=== PATIENT | female | born 1955 | race Caucasian/White ===

== ENCOUNTER 2020-05-11 14:06 | Outpatient (REF) | payer MEDICARE, OTHER, SELFPAY ==
--- NOTE | 2020-05-11 | MM_ITS ---
EXAMINATION: MM SCREENING DIGITAL BREAST TOMOSYNTHESIS, BILATERAL CLINICAL INFORMATION: Screening. Asymptomatic. The lifetime risk of breast cancer based on the Tyrer-Cuzick Model is 7.3%. COMPARISON: Mammography: August 23, 2018 and studies dating back to December 22, 2011 TECHNIQUE: Digital breast tomosynthesis is performed in both the craniocaudal and mediolateral oblique views along with computer-aided detection (CAD). Synthesized 2D images are generated from the tomosynthesis. FINDINGS: The breasts are heterogeneously dense, which may obscure small masses (ACR BI-RADS breast composition Category c). There are no significant masses, abnormal calcifications, or other abnormalities. MM/MM tomosynthesis screening BI IMPRESSION: There are no significant changes from prior study. ASSESSMENT: BI-RADS 1: Negative RECOMMENDATION: Routine annual mammography screening. This patient's information was entered into a reminder system with a target due date for their next mammogram.
--- NOTE | 2020-05-11 14:11 | MM_ITS ---
EXAMINATION: MM SCREENING DIGITAL BREAST TOMOSYNTHESIS, BILATERAL CLINICAL INFORMATION: Screening. Asymptomatic. The lifetime risk of breast cancer based on the Tyrer-Cuzick Model is 7.3%. COMPARISON: Mammography: August 23, 2018 and studies dating back to December 22, 2011 TECHNIQUE: Digital breast tomosynthesis is performed in both the craniocaudal and mediolateral oblique views along with computer-aided detection (CAD). Synthesized 2D images are generated from the tomosynthesis. FINDINGS: The breasts are heterogeneously dense, which may obscure small masses (ACR BI-RADS breast composition Category c). There are no significant masses, abnormal calcifications, or other abnormalities. MM/MM tomosynthesis screening BI IMPRESSION: There are no significant changes from prior study. ASSESSMENT: BI-RADS 1: Negative RECOMMENDATION: Routine annual mammography screening. This patient's information was entered into a reminder system with a target due date for their next mammogram.
== END 2020-05-11 14:07 | disposition home or self-care (01) ==
LOC: HO.MAMMO 14:06
PROVIDERS: PCP Internal Medicine; Visit Provider Internal Medicine
DX: Z12.31 Encounter for screening mammogram for malignant neoplasm of breast (principal)
CPT/HCPCS: 77063; 77067

== ENCOUNTER 2021-03-09 06:44 | Outpatient (REF) | payer MEDICARE, OTHER, SELFPAY ==
--- NOTE | ~2021-03-09 | XR_ITS ---
EXAMINATION: XR CHEST CLINICAL INFORMATION: COPD COMPARISON: None TECHNIQUE: 2 views of the chest were obtained. FINDINGS: The cardiac and mediastinal contours are stable. The lungs are well-inflated. There is a 1 cm asymmetric density that projects adjacent to the right first rib costochondral cartilage. It is uncertain whether this represents superimposition of bony and vascular structures or could represent a nodule. The lungs are otherwise clear. There is no pleural effusion or pneumothorax area there are degenerative changes of the spine. XR/XR chest 2V IMPRESSION: Well-inflated lungs. 1 cm asymmetric density projecting over the right upper lobe. Follow-up apical lordotic view of the chest or chest CT scan recommended.
[2021-03-09 06:51] LABS: MANUAL DIFF FLAG NO
[2021-03-09 07:18] LABS: Basophils Percent Auto 0.5 % (0-2); Eosinophils Absolute Auto 0.2 X10*3/uL (0.0-0.4); Eosinophils Percent Auto 3.5 % (0-4); Hematocrit 41.3 % (37.0-47.0); Hemoglobin 13.8 g/dl (12.0-16.0); Imm Gran Abs Auto 0.01 X10*3/uL (0.00-0.03); Imm Gran Pct Auto 0.2 % (0.0-0.4); Lymphocytes Absolute Auto 2.3 X10*3/uL (1.2-4.9); Lymphocytes Percent Auto 40.5 % (20-40); Mean Corpuscular HGB Conc 33.4 g/dl (31.0-35.0); Mean Corpuscular Hemoglobin 30.3 pg (27.0-33.0); Mean Corpuscular Volume 90.8 fL (80.0-98.0); Mean Platelet Volume 11.1 fL (9.4-12.3); Monocytes Absolute Auto 0.5 X10*3/uL (0.1-1.2); Monocytes Percent Auto 8.6 % (2-11); Neutrophils Absolute Auto 2.7 x10*3/uL (2.0-8.3); Neutrophils Percent Auto 46.7 % (45-73); Platelet Count 178 X10*3/uL (160-400); Red Blood Count 4.55 X10*6/uL (4.20-5.50); Red Cell Distribution Width 12.1 % (11.0-16.0); White Blood Count 5.7 X10*3/uL (4.8-10.8)
[2021-03-09 07:44] LABS: Alanine Aminotransferase 14 U/L (0-31); Albumin Level 3.7 g/dL (3.5-5.0); Alkaline Phosphatase 79 U/L (39-117); Anion Gap 10 (12-20); Aspartate Amino Transferase 20 U/L (5-31); Bilirubin Total 0.5 mg/dL (0.0-1.0); Blood Urea Nitrogen 8 mg/dL (9-16); Carbon Dioxide 27 mmol/L (22-29); Chloride 106 mmol/L (96-108); Cholesterol 162 mg/dL; Estimated Glomerular Filt Rate > 60; Glucose Fasting 98 mg/dL (60-99); HDL Cholesterol 46 mg/dL; LDL Cholesterol Calculated 95 mg/dl; Potassium 4.1 mmol/L (3.3-5.1); Sodium 139 mmol/L (135-145); Total Protein 6.9 g/dL (6.5-8.0); Triglycerides 106 mg/dL
== END 2021-03-09 06:45 | disposition home or self-care (01) ==
LOC: HO.XRAY 06:44
PROVIDERS: PCP Internal Medicine; Visit Provider Internal Medicine
DX: M06.9 Rheumatoid arthritis, unspecified (principal); J44.9 Chronic obstructive pulmonary disease, unspecified; M17.10 Unilateral primary osteoarthritis, unspecified knee; R63.4 Abnormal weight loss; F17.200 Nicotine dependence, unspecified, uncomplicated; Z82.49 Family history of ischemic heart disease and other diseases of the circulatory system
CPT/HCPCS: 36415; 71046; 80053; 80061; 85025

== ENCOUNTER 2021-04-04 12:58 | Outpatient (REF) | payer MEDICARE, OTHER, SELFPAY ==
--- NOTE | ~2021-04-04 | CT_ITS ---
EXAMINATION: CT CHEST WITHOUT CONTRAST CLINICAL INFORMATION: Question right upper lobe lesion on chest x-ray COMPARISON: Previous chest x-ray February 2021 TECHNIQUE: Multidetector volumetric CT imaging of the chest was done. Axial MIP volume rendering provided. Sagittal and coronal reformatted images were obtained. This CT examination was performed using dose optimization techniques as appropriate, variously including the following: *Automated exposure control *Adjustment of mA and/or kV according to patient size (this includes techniques or standardized protocols for targeted exams where dose is matched to indication/reason for exam; i.e. extremities or head) *Use of iterative reconstruction technique DLP: 81 mGy-cm FINDINGS: LUNGS: There is evidence of mild emphysema. There is a 5 mm right upper lobe nodule axial image 72 series 7. There is a 2 mm left upper lobe nodule axial image 137 series 7. There is a 1 to 2 mm right upper lobe nodule posterior segment axial image 185 series 7. There is a 2 mm medial anterior segment right upper lobe nodule axial image 183 series 7. There is a 1.5 cm cyst in the right lower lobe. Density seen on chest x-ray is likely related to first rib costochondral cartilage. MEDIASTINUM: There is mild coronary artery calcification. There are small mediastinal lymph nodes. No enlarged lymph nodes are seen. The mediastinum is otherwise normal. PLEURA: There is no pleural effusion. No pleural mass or thickening. AXILLA: No lymphadenopathy. UPPER ABDOMEN: Unremarkable. OSSEOUS STRUCTURES: There are degenerative changes of the spine and mild curvature of the proximal thoracic spine to the right. CT/CT chest wo con IMPRESSION: Mild emphysema. Small pulmonary nodules. Largest pulmonary nodule measures 5 mm in the right upper lobe. According to the UPDATED 2017 Fleischner Society recommendations, the advised follow-up imaging for less than 6 mm nodule: Low risk, no chest CT follow-up and high risk, optional chest CT follow-up in one year. Fleischner guidelines were followed.
== END 2021-04-04 12:59 | disposition home or self-care (01) ==
LOC: HO.CT 12:58
PROVIDERS: PCP Internal Medicine; Visit Provider Internal Medicine
DX: R91.8 Other nonspecific abnormal finding of lung field (principal)
CPT/HCPCS: 71250

== ENCOUNTER 2021-08-03 12:54 | Outpatient (REF) | payer MEDICARE, OTHER, SELFPAY ==
--- NOTE | ~2021-08-03 | MM_ITS ---
EXAMINATION: MM SCREENING DIGITAL BREAST TOMOSYNTHESIS, BILATERAL CLINICAL INFORMATION: Screening. Asymptomatic. The lifetime risk of breast cancer based on the Tyrer-Cuzick Model is 4%. COMPARISON: Mammography: 05/11/2020, 08/23/2018, 07/30/2017 TECHNIQUE: Digital breast tomosynthesis is performed in both the craniocaudal and mediolateral oblique views along with computer-aided detection (CAD). Synthesized 2D images are generated from the tomosynthesis. FINDINGS: There are scattered areas of fibroglandular density (ACR BI-RADS breast composition Category b). There is inhomogeneous parenchymal pattern with scattered stable asymmetries similar to prior studies. Again, there is dominant oval mass right upper outer quadrant and 2 smaller stable masses (breast upper outer quadrant and central lower left breast. Biopsy clip marker again noted on right anterior 11:30 o'clock position. There are scattered bilateral punctate calcifications again seen more numerous on the right. There is no developing density or interval mass or interval architectural abnormality. The axilla and skin contours are unremarkable. There are no significant changes. MM/MM tomosynthesis screening BI IMPRESSION: No significant changes from prior exams. ASSESSMENT: BI-RADS 2: Benign RECOMMENDATION: Routine annual mammography screening. This patient's information was entered into a reminder system with a target due date for their next mammogram.
== END 2021-08-03 12:55 | disposition home or self-care (01) ==
LOC: HO.MAMMO 12:54
PROVIDERS: PCP Internal Medicine; Visit Provider Internal Medicine
DX: Z12.31 Encounter for screening mammogram for malignant neoplasm of breast (principal)
CPT/HCPCS: 77063; 77067

== ENCOUNTER 2022-08-24 13:59 | Outpatient (REF) | payer MEDICARE, OTHER, SELFPAY ==
--- NOTE | ~2022-08-24 | XR_ITS ---
EXAMINATION: XR LUMBOSACRAL SPINE CLINICAL INFORMATION: Low back pain COMPARISON: None available. TECHNIQUE: Three views of the lumbosacral spine. FINDINGS: There is normal lumbar lordosis. The vertebral heights and alignment is normal. There is loss of L4-L5 and L5-S1 disc heights. Rest the disc heights are normal. No visible acute fracture, dislocation or lytic process seen. The SI joints are symmetrical. The soft tissues are normal. XR/XR lumbar spine 2-3V IMPRESSION: Degenerative disc changes L4-L5 and L5-S1 disc levels. No visible acute fracture, dislocation or lytic process seen.
== END 2022-08-24 14:00 | disposition home or self-care (01) ==
LOC: HO.XRAY 13:59
PROVIDERS: PCP Internal Medicine; Visit Provider Internal Medicine
DX: M54.9 Dorsalgia, unspecified (principal); M79.605 Pain in left leg; M79.604 Pain in right leg; J44.9 Chronic obstructive pulmonary disease, unspecified
CPT/HCPCS: 72100

== ENCOUNTER 2022-08-31 15:48 | Outpatient (REF) | payer MEDICARE, OTHER, SELFPAY ==
--- NOTE | ~2022-08-31 | MM_ITS ---
EXAMINATION: MM SCREENING DIGITAL BREAST TOMOSYNTHESIS, BILATERAL CLINICAL INFORMATION: Screening. Asymptomatic. The lifetime risk of breast cancer based on the Tyrer-Cuzick Model is 7%. COMPARISON: Mammography: 08/03/2021, 05/11/2020, 08/23/2018 TECHNIQUE: Digital breast tomosynthesis is performed in both the craniocaudal and mediolateral oblique views along with computer-aided detection (CAD). Synthesized 2D images are generated from the tomosynthesis. FINDINGS: There are scattered areas of fibroglandular density (ACR BI-RADS breast composition Category b). Parenchymal pattern is similar to prior studies and there is no developing density or architectural abnormality or significant changes. There are no significant masses, abnormal calcifications, or other abnormalities. Again, there is smooth oval focal nodular asymmetry mid upper outer right breast. Biopsy clip marker again seen 12:00 right breast. The axilla are unremarkable. MM/MM tomosynthesis screening BI IMPRESSION: No mammographic evidence of malignancy. ASSESSMENT: BI-RADS 2: Benign RECOMMENDATION: Routine annual mammography screening. This patient's information was entered into a reminder system with a target due date for their next mammogram.
== END 2022-08-31 15:49 | disposition home or self-care (01) ==
LOC: HO.MAMMO 15:48
PROVIDERS: PCP Internal Medicine; Visit Provider Internal Medicine
DX: Z12.31 Encounter for screening mammogram for malignant neoplasm of breast (principal)
CPT/HCPCS: 77063; 77067

== ENCOUNTER 2022-09-11 13:22 | Outpatient (REF) | payer MEDICARE, OTHER, SELFPAY ==
--- NOTE | ~2022-09-11 | US_ITS ---
EXAMINATION: ARTERIAL DUPLEX BILATERAL LEGS CLINICAL INFORMATION: Bilateral leg pain. COMPARISON: None TECHNIQUE: Duplex Doppler of the bilateral lower extremity arterial systems was performed. FINDINGS: RIGHT: Common femoral: PSV 206 cm/s. Triphasic waveform. Deep femoral: PSV 120 cm/s. Triphasic waveform. Proximal superficial femoral: PSV 142 cm/s. Triphasic waveform. Mid superficial femoral: PSV 169 cm/s. Biphasic waveform. Distal superficial femoral: PSV 118 cm/s. Biphasic waveform. Popliteal: PSV 62 cm/s. Biphasic waveform. Posterior tibial: PSV 73 cm/s. Biphasic waveform. Peroneal: PSV 81 cm/s. Biphasic waveform. LEFT: Common femoral: PSV 152 cm/s. Triphasic waveform. Deep femoral: PSV 92 cm/s. Triphasic waveform. Proximal superficial femoral: PSV 132 cm/s. Biphasic waveform. Mid superficial femoral: PSV 127 cm/s. Triphasic waveform. Distal superficial femoral: PSV 108 cm/s. Biphasic waveform. Popliteal: PSV 78 cm/s. Biphasic waveform. Posterior tibial: PSV 84 cm/s. Biphasic waveform. Peroneal: PSV 85 cm/s. Biphasic waveform. An irregular cardiac rhythm is noted. US/US arterial duplex LE BI IMPRESSION: No evidence of hemodynamically significant peripheral arterial disease. An irregular cardiac rhythm is noted.
== END 2022-09-11 13:23 | disposition home or self-care (01) ==
LOC: HO.US 13:22
PROVIDERS: PCP Internal Medicine; Visit Provider Internal Medicine
DX: M79.604 Pain in right leg (principal); M79.605 Pain in left leg
CPT/HCPCS: 93925

== ENCOUNTER 2022-09-27 08:05 | Outpatient (REF) | payer MEDICARE, OTHER, SELFPAY ==
--- NOTE | ~2022-09-27 | MR_ITS ---
EXAMINATION: MR LUMBAR SPINE WITHOUT CONTRAST CLINICAL INFORMATION: 67-year-old with self-reported chronic low back pain and buttock pain. History of rheumatoid arthritis. Some numbness and tingling in the right leg and foot. Clinical concern for L4 compression fracture, with low back pain. COMPARISON: 08/24/2022 x-rays. TECHNIQUE: MRI of the lumbar spine was obtained using routine sequences without contrast. FINDINGS: Coronal Alignment: Slight S-shaped thoracolumbar scoliotic curvature, minimally convex to the left at L4-L5. Sagittal Alignment: 2 mm of retrolisthesis at L1-L2 and trace degrees of retrolisthesis at L2-L3 and L3-L4 similar to the x-rays. No anterior spondylolisthesis or spondylolysis. Lordotic curvature centered at L3-L4. Lumbosacral Junction: Normal. There are 5 trp-hng-baeckwl lumbar-type vertebral bodies. Vertebral Bodies: There is mild to moderate relatively central concavity with loss of height along the superior endplate of L3, which is more prominent than on the previous x-rays consistent with an interval compression fracture deformity without significant retropulsion. Remaining lumbar and visualized lower thoracic vertebral body heights are well-maintained. Disc Spaces and Endplates: Moderate to severe disc space height loss asymmetric to the right at L4-L5 with disc desiccation, Schmorl's nodes and minor spondylosis. Moderate to severe disc space height loss at L5-S1 with disc desiccation and anterolateral spondylosis. Mild disc desiccation at L3-L4 without significant disc space height loss. There is disc desiccation at L2-L3 with concavity along the superior endplate of L3 consistent with a compression fracture. There is mild disc space height loss with disc desiccation at L1-L2 with moderate anterior marginal spondylosis. Spinal Canal: No abnormal developmental findings. Bone Marrow: There is bandlike bone marrow edema extending across the superior aspect of the L3 vertebral body adjacent to the superior endplate with T1 signal loss associated with this consistent with a nonhealed superior endplate fracture without significant anterior wedging. No retropulsion seen. There are type I and type II degenerative marrow signal changes along the endplates asymmetric to the right at L4-L5 with type II marrow signal changes at L5-S1. Note is made of a cortical step-off along the anterior cortex of the upper S2 vertebral segment associated with marrow edema in the S1 and S2 vertebral segments in the midline in addition to T1 signal loss and marrow edema in the sacral alae bilaterally, which are partially imaged. These findings are consistent with a sacral insufficiency fracture. Suggest correlation with plain x-rays of the pelvis. Conus Medullaris: Terminates at T12-L1. Morphology and signal is normal. Intradural Nerve Roots: Within normal limits. L5-S1: Mild posterolateral disc osteophyte complex asymmetric to the left, with slight encroachment on the ventral dural sac on the left without definite neural impingement. There is mild facet arthrosis bilaterally with no significant canal stenosis. Mild left-sided neural foraminal stenosis is noted. Left paravertebral disc osteophyte complex may be contacting the extraforaminal left L5 nerve root. L4-L5: There is diffuse disc bulging with right paravertebral/posterolateral disc osteophyte complex, with mild flattening of the ventral dural sac. Mild ligamentum flavum thickening is noted with mild to moderate right and mild left-sided facet arthropathy without significant spinal canal stenosis. There is moderate right-sided neural foraminal stenosis with disc osteophyte complex abutting the exiting right L4 nerve root. L3-L4: Minor annular bulging noted with slight flattening of the ventral dural sac. Ligamentum flavum thickening is noted with interspinous ligament degeneration and [id number] bilateral facet arthrosis. No significant spinal canal stenosis. Minor foraminal narrowing is noted on the left without neural impingement. L2-L3: Minor disc bulging noted with slight flattening of the ventral dural sac. Mild ligamentum flavum thickening and interspinous ligament degeneration is noted with minor facet arthropathy bilaterally with no significant canal stenosis. There is minor foraminal narrowing bilaterally without neural impingement. L1-L2: Retrolisthesis and minor disc bulging with slight flattening of the ventral dural sac is noted with no significant facet arthrosis or canal stenosis. There is minor foraminal narrowing bilaterally without neural impingement. Paravertebral and Included Extraspinal Soft Tissues: The visualized paravertebral soft tissues and included retroperitoneal structures are unremarkable within the limitations of the exam. MR/MR lumbar spine wo con IMPRESSION: 1. Qtvd-[id number], nonhealed interval compression fracture deformity along the superior endplate of L3 as described above, with approximately 30% loss of height centrally with no significant retropulsion or anterior wedging, with associated marrow edema. 2. Bilateral sacral insufficiency fractures, partially imaged, with a cortical step off at S2. If clinically warranted, recommend correlation with pelvic x-rays. 3. Multilevel discogenic degenerative changes and spondylosis as described above, with multilevel disc bulging and disc osteophyte complexes with multilevel bilateral facet arthropathy and interspinous ligament degeneration. No significant spinal canal stenosis. 4. Moderate right-sided neural foraminal stenosis at L4-L5 with disc osteophyte complex abutting the exiting right L4 nerve root. Other levels of mild neural foraminal narrowing are noted without neural impingement. The [facility] staff will call to confirm receipt of this report with acknowledgement of the findings and any recommendations.
== END 2022-09-27 08:06 | disposition home or self-care (01) ==
LOC: HO.MRI 08:05
PROVIDERS: PCP Internal Medicine; Visit Provider Internal Medicine
DX: M54.50 Low back pain, unspecified (principal)
CPT/HCPCS: 72148

== ENCOUNTER 2022-11-02 13:50 | Outpatient (REF) | payer MEDICARE, OTHER, SELFPAY ==
[2022-11-09 02:03] LABS: JCV Antibody POSITIVE; JCV Index Value 3.37
== END 2022-11-02 13:51 | disposition home or self-care (01) ==
LOC: HO.LAB 13:50
PROVIDERS: PCP Internal Medicine; Visit Provider Ophthalmology
DX: H15.03 Posterior scleritis (principal); Z79.899 Other long term (current) drug therapy
CPT/HCPCS: 36415; 86711; 87798

== ENCOUNTER 2022-12-01 13:31 | Outpatient (REF) | payer MEDICARE, OTHER, SELFPAY ==
[2022-12-09 02:24] LABS: JCV Antibody POSITIVE; JCV Index Value 3.55
== END 2022-12-01 13:32 | disposition home or self-care (01) ==
LOC: HO.LAB 13:31
PROVIDERS: PCP Internal Medicine; Visit Provider Ophthalmology
DX: H15.03 Posterior scleritis (principal); Z79.899 Other long term (current) drug therapy
CPT/HCPCS: 36415; 86711; 87798

== ENCOUNTER 2023-08-25 08:37 | Outpatient (REF) | payer MEDICARE, OTHER, SELFPAY ==
[2023-08-25 08:55] LABS: MANUAL DIFF FLAG NO
[2023-08-25 09:26] LABS: Basophils Absolute Auto 0.1 X10*3/uL (0.0-0.2); Basophils Percent Auto 1.1 % (0-2); Eosinophils Absolute Auto 0.3 X10*3/uL (0.0-0.4); Hematocrit 43.2 % (37.0-47.0); Hemoglobin 14.8 g/dl (12.0-16.0); Imm Gran Abs Auto 0.02 X10*3/uL (0.00-0.03); Imm Gran Pct Auto 0.4 % (0.0-0.4); Lymphocytes Absolute Auto 1.7 X10*3/uL (1.2-4.9); Lymphocytes Percent Auto 30.9 % (20-40); Mean Corpuscular HGB Conc 34.3 g/dl (31.0-35.0); Mean Corpuscular Hemoglobin 31.3 pg (27.0-33.0); Mean Corpuscular Volume 91.3 fL (80.0-98.0); Monocytes Absolute Auto 0.5 X10*3/uL (0.1-1.2); Monocytes Percent Auto 8.5 % (2-11); Neutrophils Absolute Auto 3.1 x10*3/uL (2.0-8.3); Neutrophils Percent Auto 54.1 % (45-73); Platelet Count 161 X10*3/uL (160-400); Red Blood Count 4.73 X10*6/uL (4.20-5.50); Red Cell Distribution Width 12.8 % (11.0-16.0); White Blood Count 5.6 X10*3/uL (4.8-10.8)
[2023-08-25 09:28] LABS: Appearance Urine Clear; Color Urine Yellow; Glucose Urine UA Negative (Negative); Leukocyte Esterase Urine Negative (Negative); Nitrite Urine Negative (Negative); PH 5.5 (5.0-9.0); Specific Gravity - Urine 1.015 (1.005-1.025); Urine Blood Negative (Negative); Urine Ketones Negative (Negative); Urine Protein Negative (Neg-Trace)
[2023-08-25 10:07] LABS: Alanine Aminotransferase 13 U/L (0-31); Albumin Level 3.9 g/dL (3.5-5.0); Alkaline Phosphatase 57 U/L (39-117); Anion Gap 11 (12-20); Aspartate Amino Transferase 19 U/L (5-31); Bilirubin Total 0.5 mg/dL (0.0-1.0); Blood Urea Nitrogen 11 mg/dL (9-16); Calcium 9.2 mg/dL (8.4-10.2); Carbon Dioxide 25 mmol/L (22-29); Chloride 110 mmol/L (96-108); Cholesterol 172 mg/dL (<200); Estimated Glomerular Filt Rate > 60; Glucose Fasting 92 mg/dL (60-99); HDL Cholesterol 65 mg/dL (>40); LDL Cholesterol Calculated 89 mg/dL (<100); Potassium 4.1 mmol/L (3.3-5.1); Sodium 142 mmol/L (135-145); Total Protein 6.5 g/dL (6.5-8.0); Triglycerides 94 mg/dL (<150)
[2023-08-25 10:25] LABS: Vitamin D 25-OH Total 10.7 ng/mL (>30)
== END 2023-08-25 08:38 | disposition home or self-care (01) ==
LOC: HO.LAB 08:37
PROVIDERS: PCP Internal Medicine; Visit Provider Internal Medicine
DX: M05.79 Rheumatoid arthritis with rheumatoid factor of multiple sites without organ or systems involvement (principal); J44.9 Chronic obstructive pulmonary disease, unspecified; J45.909 Unspecified asthma, uncomplicated
CPT/HCPCS: 36415; 80053; 80061; 81003; 82306; 85025

== ENCOUNTER 2023-09-03 13:23 | Outpatient (REF) | payer MEDICARE, OTHER, SELFPAY ==
--- NOTE | ~2023-09-03 | MM_ITS ---
EXAMINATION: MM SCREENING DIGITAL BREAST TOMOSYNTHESIS, BILATERAL CLINICAL INFORMATION: Screening. Asymptomatic. COMPARISON: Mammography: This study is compared with prior exams dating back to 2018. TECHNIQUE: Digital breast tomosynthesis is performed in both the craniocaudal and mediolateral oblique views along with computer-aided detection (CAD). Synthesized 2D images are generated from the tomosynthesis. FINDINGS: There are scattered areas of fibroglandular density (ACR BI-RADS breast composition Category b). There are no significant masses, abnormal calcifications, or other abnormalities. There is tissue marker present in the right breast from prior benign percutaneous biopsy. MM/MM tomosynthesis screening BI IMPRESSION: No mammographic evidence of malignancy. ASSESSMENT: BI-RADS BI-RADS 2 - Benign Findings RECOMMENDATION: Routine annual mammography screening. 1 year F/U This examination should not preclude the clinical evaluation of a suspicious palpable abnormality. This patient's information was entered into a reminder system with a target due date for their next mammogram.
== END 2023-09-03 13:24 | disposition home or self-care (01) ==
LOC: HO.MAMMO 13:23
PROVIDERS: PCP Internal Medicine; Visit Provider Internal Medicine
DX: Z12.31 Encounter for screening mammogram for malignant neoplasm of breast (principal)
CPT/HCPCS: 77063; 77067

== ENCOUNTER → 2023-09-03 13:45 | Outpatient (BNV) | payer MEDICARE, OTHER, SELFPAY | PROVIDERS: PCP Internal Medicine; Visit Provider Radiology Diagnostic Radiology | DX: Z12.31 Encounter for screening mammogram for malignant neoplasm of breast (principal) | CPT/HCPCS: 77063; 77067 ==

== ENCOUNTER 2023-10-06 09:03 | Outpatient (REF) | payer MEDICARE, OTHER, SELFPAY ==
[2023-10-06 10:59] LABS: Vitamin D 25-OH Total 33.5 ng/mL (>30)
== END 2023-10-06 09:04 | disposition home or self-care (01) ==
LOC: HO.LAB 09:03
PROVIDERS: PCP Internal Medicine; Visit Provider Internal Medicine
DX: E55.9 Vitamin D deficiency, unspecified (principal)
CPT/HCPCS: 36415; 82306

== ENCOUNTER 2024-09-08 12:43 | Outpatient (REF) | payer MEDICARE, OTHER, SELFPAY ==
--- OUTSIDE RECORDS SUMMARY | 2024-09-08 12:56 | XMS_ITS | Patient Health Record ---
Author Organization [facility] Address [address] [facility] [place] [address] Care Team Providers Care Candle Wicker Name Role Phone Marty Barrera MD Primary Care Provider Bakari Gutierrez Unavailable [phone] Allergies Allergen (clinical drug ingredient) Drug/Non Drug Allergy documented on EMR Reaction Allergy Type Onset Date Status leflunomide Leflunomide nausea and diarrhea Drug Allergy Active tocilizumab Actemra body rash Drug Allergy Activ e Adhesive skin sensitivity Allergy Act stevie methotrexate Methotrexate dizziness Drug Allergy A ctive Reason For Referral No Information Medications Medication SIG (Take, Route, Frequency, Duration) Notes Start Date End Date Status Alendronate Sodium 70 MG TAKE 1 TABLET B Y MOUTH ONCE WEEKLY INSTRUCTED Oral for 84 Active Acthrel 07/11/2023 Active Acthar 80 UNIT/ML INJECT 0.5 ML (40 UN ITS) UNDER THE SKIN TWICE EVERY WEEK.DISCARD VIAL 28 DAYS AFTER PUNCTURED Injection for 28 Active Alendronate Sodium 70 MG Oral for 28 Days Active Dorzolamide HCl-Timolol Mal 2-0.5 % INSTILL 1 DROP INTO BOTH EYES TWICE A DAY Ophthalmic for 30 Days Active Ketorolac Tromethamine 0.5 % INSTILL 1 DROP INTO LEFT EYE TWICE A DAY Ophthalmic for 30 Days Active Calcium 07/11/2023 Active Zinc 07/11/2023 Active Multivitamin 07/11/2023 Active Benadryl Allergy PRN Act stevie Calcium Active amLODIPine Besylate 2.5 MG 1 tablet Oral ly Once a day for 30 day(s) Active Rituxan 100 MG/10ML Intravenous for 42 Days Active Social History Tobacco Use: Social History Observation Description Date Details (start date - stop date) Current Smoker NA - NA Tobacco Use/Smoking Question Answer Notes Are you a: current smoker How often do you smoke cigarettes? every day How many cigarettes a day do you smoke? 11-20 How soon after you wake up do you smoke your fir st cigarette? 31-60 minutes Alcohol Screen Question Answer Notes Did you have a drink contain ing alcohol in the past year? Yes How often did you have a dri nk containing alcohol in the past year? Monthly or less (1 point) Points 1 Interpretation Negative Tobacco use other than smoking: Question Answer Notes Are you an other tobacco user? No Problems Problem Type SNOMED Code ICD Code Onset Dates Problem Status W/U Status Risk Notes Problem Ulcer of toe of right foot (disorder) (76843748227 [id number]) Skin ulcer of toe of right foot, limited to breakdown of skin (L97.511) Active confirmed Problem Skin ulcer of toe of left foot, limited to breakdown of skin (L97.521) Active confirmed Plan Of Treatment Pending Test Test Name Order Date 82846-Msizixkj Plate 08/13/2023 54817- Debride <25 sq cm 08/30/2023 Insurance Providers Payer Name Payer Address Payer Phone Subscriber Number Group Number Insured Name Patient Relationship to Insured Coverage Start Date Coverage End Date Medicare National [employer] [address] [facility] [place] [address] [id number] Adriana Mullins Self - patient is the insured [facility] [address] [place] [address] [id number] Adriana Mullins Self - patient is the insured Medical (General) History Medical History History ICD Code Arthritis Back,Hip,and Knee pain Broken bones Cataracts covid-19 Glaucoma Macular degeneration Osteoporosis sinusitis Warts Measles Mumps Chicken pox broken + misaligned spinal discs posterior scleritis, left eye Surgical History Surgery Date(Month/Year) cataract surgery 11/24 & 2020 stereotactic breast biopsy (benign) 1998 glaucoma 06/16/22 Ingrown Toe Nail planters wart
--- OUTSIDE RECORDS SUMMARY | 2024-09-08 12:56 | XMS_ITS ---
Author Organization [facility] Address [address] [facility] [place] [address] Care Team Providers Care Research Technologist Name Role Phone Marty Barrera MD Primary Care Provider Unavaila jasmine Austin Bakari Unavailable [phone] Black, Telma Unavailable [phone] Allergies Allergen (clinical drug ingredient) Drug/Non Drug Allergy documented on EMR Reaction Allergy Type Onset Date Status leflunomide Leflunomide nausea and diarrhea Drug Allergy Active tocilizumab Actemra body rash Drug Allergy Activ e Adhesive skin sensitivity Allergy Act stevie methotrexate Methotrexate dizziness Drug Allergy A ctive REASON FOR VISIT Pcp- 08/22/23, Open sore - Toe Medications Medication SIG (Take, Route, Frequency, Duration) Notes Start Date End Date Status Calcium Active amLODIPine Besylate 2.5 MG 1 tablet Oral ly Once a day for 30 day(s) Active Alendronate Sodium 70 MG TAKE 1 TABLET B Y MOUTH ONCE WEEKLY INSTRUCTED Oral for 84 Active Acthar 80 UNIT/ML INJECT 0.5 ML (40 UN ITS) UNDER THE SKIN TWICE EVERY WEEK.DISCARD VIAL 28 DAYS AFTER PUNCTURED Injection for 28 Active Benadryl Allergy PRN Act stveie Dorzolamide HCl-Timolol Mal 2-0.5 % INSTILL 1 DROP INTO BOTH EYES TWICE A DAY Ophthalmic for 30 Days Active Ketorolac Tromethamine 0.5 % INSTILL 1 DROP INTO LEFT EYE TWICE A DAY Ophthalmic for 30 Days Active Calcium 07/11/2023 Active Zinc 07/11/2023 Active Multivitamin 07/11/2023 Active Rituxan 100 MG/10ML Intravenous for 42 Days Active Acthrel 07/11/2023 Active Alendronate Sodium 70 MG Oral for 28 Days Active Social History Tobacco Use: [...] Problem Status W/U Status Risk Notes Problem Skin ulcer of toe of left foot, limited to breakdown of skin (L97.521) Active confirmed Problem Ulcer of toe of right foot (disorder) ([id number]) Skin ulcer of toe of right foot, limited to breakdown of skin (L97.511) Active confirmed Vital Signs Height 5 ft 1 in in 08/30/2023 Weight 110 lbs 08/30/2023 BMI 20.78 kg/m2 08/30/2023 Blood pressure systolic 122 mm Hg 08/30/19 24 Blood pressure diastolic 70 mm Hg 024 Procedures Procedure Date Ordered Date Performed Result Body Sit e 21818- Debride <25 sq cm 08/30/2023 N/A Encounters Encounter Location Date Provider Diagnosis [facility] [place] [address] [place] [address] 08/30/2023 Telma Black Skin ulcer of toe of right foot, limited to breakdown of skin L97.511 Assessments Encounter Date Diagnosis (ICD Code) Assessment Notes Treatment Notes Treatment Clinical Notes Section Notes 08/30/2023 Skin ulcer of toe of right foot, limited to breakdown of skin (ICD-10 - L97.511) Nonapplicable Patient Educated with: WOUND CARE INSTRUCTIONS.p df (WOUND CARE INSTRUCTIONS.p df) 08/30/2023 Other Plan Of Treatment Treatment Notes Assessment Notes Skin ulcer of toe of right f oot, limited to breakdown of skin Patient Educated with: WOUND CARE INSTRUCTIONS.pdf (WOUND CARE INSTRUCTIONS.pdf) Pending Test Test Name Order Date 87972- Debride <25 sq cm 08/30/2023 Next Appt Details Follow Up: 9w, Reason: Procedure Notes * Category Sub-Category Detail Notes Debride skin< 25 sq cm Open wound Physician of record performed open wound selective debridement of first 25 sq cm or less, of devitilized necrotic/nonviable soft tissue, fibrin, and exudate extending from the epidermis through the dermis, utilizing sharp dissection with sterile 15 blade, and/or tissue nippers. Sterile antibiotic dressing applied, ANESTHESIA- was accomplished TOPICALLY with Lidocaine Hydrochloride Jelly 2 percent. Hemostasis was achieved through direct pressure. Post debridement measurements: 6 mm x 3 mm x 2 mm. Character of the wound post debridement is stable (17192) Progress Notes * Adriana CORTEZ ADOB: [birth year] (68 yo F)Acc No.[id number]:08/30/2023 Progress Notes Patient:?Susanna Adriana A Provider:?Telma Ibarra DPM :1955???Age:68 Y???Sex:Female D ate:08/30/2023 Address:[address] [place] [id number] Pcp:Marty Barrera MD Subjective: * Chief Complaints: * ???Pcp- 08/22/23 Open sore - Toe * HPI: ???Skin problems:?Treatments:?soaks.? * ROS:?General/Constitutional:?Nausea?denies.?Vomiting?denies.?Hunger Thirst?denies.?Loss appetite?denies.?Chills?denies.?Fatigue?denies.?Fever?denies.?Night Sweats?denies.?Unexplained weight loss?denies.?Unexplained weight gain?denies.?HEENTM:?Dentures?denies.?Dizziness?denies.?Glasses/contacts?denies.?Retinopathy?de nies.?Blurred/double vision?denies.?TMJ?denies.?Discharge/drainage?denies.?Implants?denies.?Sore throat?denies.?Dental implants?denies.?Hard of hearing ?denies.?Difficulty chewing/swallowing/speaking?denies.?Nose bleeds?denies.?Sore mouth?denies.?Respiratory:?On Oxygen?denies.?Pneumonia/pleurisy?denies.?Bronchitis?denies.?Emphysema?denies.?C oughing?denies.?Cough blood?denies.?Shortness of breath?denies.?Wheezing?denies.?Cardiovascular:?Pacemaker?denies.?MVP?denies.?WPW?denies.?CHF?denies.?Heart attack?denies.?Septal defect?denies.?Rapid beat?denies.?Chest pain ?denies.?Atrial Fib.?denies.?Murmur/Palpitations?denies.?Gastrointestinal:?Hemorrhoids?denies.?Stomach/Abdominal pain?denies.?Dark blood stool?denies.?Irritable bowel ?denies.?Constipation?denies.?Diarrhea?denies.?Hematology:?Swelling?denies.?Clots?denies.?Varicose Veins?denies.?Bruising?denies.?Bleeding problem?denies.?Genitourinary:?Blood urine?denies.?Frequent/Painfu/urination/bladder control?denies.?Kidney stones?denies.?Infection (UTI)?denies.?Nephropathy?denies.?sex trans dis (STD)?denies.?Prostate?denies.?Musculoskeletal:?Hammertoes?denies.?Bunions?denies.?Back Pain?admits.?Muscle Cramps/ Resting?denies.?Muscle cramps / walking?denies.?Generalized aches and pains?admits.?Weakness?denies.?Integ.:?Domingo?denies.?Scars?denies.?Corns/calluses?denies.?Ingrown nails?admits.?Painful nails?denies.?Open Sores?denies.?Rashes?denies.?Neurologic:?Difficulty sleeping?denies.?Brain disorder?denies.?Numbness?denies.?Balance trouble?denies.?Confusion?denies.?Fainting/blackouts?denies.?Tingling?denies.?Tr emors?denies.? * Medical History:? * Surgical History:?cataract s urgery 11/24 & 1stereotactic breast biopsy (benign) 06/24/1998glaucoma 06/16/22Ingrown Toe Nail planters wart * Hospitalization/Major Diagno stic Procedure:?Denies Past Hospitalization * Family History:?Mother: dece ased, arthritis, stroke, foot problems.?Father: , diabetes, stroke, heart attack, high blood pressure.?Paternal Grand Mother: arthritis, stroke.?Paternal Grand Father: stroke, heart attack.?Maternal Grand Mother: arthritis, stroke.?Maternal Grand Father: stroke.?Paternal uncle: cancer.?Siblings: defects.? Cousin - Cancer. * Social History:?Tobacco Use:?Tobacco Use/Smoking?Are you a:?current smoker ?How often do you smoke cigarettes??every day ?How many cigarettes a day do you smoke??11-20 ?How soon after you wake up do you smoke your first cigarette??31-60 minutes ?Tobacco use other than smoking?Are you an other tobacco user??No ???Drugs/Alcohol:?Drugs?Have you used drugs other than those for medical reasons in the past 12 months??No ?Alcohol Screen?Did you have a drink containing alcohol in the past year??Yes ?How often did you have a drink containing alcohol in the past year??Monthly or less (1 point) ?Points?1 ?Interpretation?Negative ???Miscellaneous:?Caffeine: yes, frequency:, 3-5 cups per day. ?Children: yes, 1. ?Exercise: yes, walking, core strength exercise. ?Marital status: . 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 * Medications:?TakingRituxan 1 00 MG/10ML Solution Intravenous Acthrel Alendronate Sodium 70 MG Tablet Oral Dorzolamide HCl-Timolol Mal 2-0.5 % Solution INSTILL 1 DROP INTO BOTH EYES TWICE A DAY Ophthalmic Ketorolac Tromethamine 0.5 % Solution INSTILL 1 DROP INTO LEFT EYE TWICE A DAY Ophthalmic Calcium Zinc Multivitamin Benadryl Allergy , Notes: PRNCalcium amLODIPine Besylate 2.5 MG Tablet 1 tablet Orally Once a dayAlendronate Sodium 70 MG Tablet TAKE 1 TABLET BY MOUTH ONCE WEEKLY INSTRUCTED Oral Acthar 80 UNIT/ML Gel INJECT 0.5 ML (40 UNITS) UNDER THE SKIN TWICE EVERY WEEK.DISCARD VIAL 28 DAYS AFTER PUNCTURED Injection Medication List reviewed and reconciled with the patientTaking Rituxan 100 MG/10ML Solution Intravenous Taking Acthrel Taking Alendronate Sodium 70 MG Tablet Oral Taking Dorzolamide HCl- Timolol Mal 2-0.5 % Solution INSTILL 1 DROP INTO BOTH EYES TWICE A DAY Ophthalmic Taking Ketorolac Tromethamine 0.5 % Solution INSTILL 1 DROP INTO LEFT EYE TWICE A DAY Ophthalmic Taking Calcium Taking Zinc Taking Multivitamin Taking Benadryl Allergy , Notes: PRNTaking Calcium Taking amLODIPine Besylate 2.5 MG Tablet 1 tablet Orally Once a dayTaking Alendronate Sodium 70 MG Tablet TAKE 1 TABLET BY MOUTH ONCE WEEKLY INSTRUCTED Oral Taking Acthar 80 UNIT/ML Gel INJECT 0.5 ML (40 UNITS) UNDER THE SKIN TWICE EVERY WEEK.DISCARD VIAL 28 DAYS AFTER PUNCTURED Injection Medication List reviewed and reconciled with the patient * Allergies:?Adhesive: skin se nsitivityActemra: body rashLeflunomide: nausea and diarrheaMethotrexate: dizzinessyes[Allergies Verified] Objective: * Vitals:?Ht: 5 ft 1 in, Wt:11 0, BMI:20.78, Shoe size:8.5, BP:122/70 mm Hg. * Examination: ???Dermatologic: ?ULCER:? LOCATION, T6, SIZE, 8mm X 4mm X 2mm, BASE, granular, RIM, hyperkeratotic, UNDERMINING, absent, TRACKING, Full thickness breakdown of skin, DRAINAGE, serosanguineous, mild, NECROTIC TISSUE, loosely-adherent, yellow slough, MALODOR, absent, CALOR, absent, ERYTHEMA, absent, PAIN ON PALPATION, present.? Assessment: * Assessment: 1.?Skin ulcer of toe of righ t foot, limited to breakdown of skin - L97.511 (Primary), Response to treatment, Nonapplicable? Plan: * Treatment: * Procedures:?Debride skin< 25 sq cm:?Open wound?Physician of record performed open wound selective debridement of first 25 sq cm or less, of devitilized necrotic/nonviable soft tissue, fibrin, and exudate extending from the epidermis through the dermis, utilizing sharp dissection with sterile 15 blade, and/or tissue nippers. Sterile antibiotic dressing applied, ANESTHESIA- was accomplished TOPICALLY with Lidocaine Hydrochloride Jelly 2 percent. Hemostasis was achieved through direct pressure. Post debridement measurements: 6 mm x 3 mm x 2 mm. Character of the wound post debridement is stable (58554).? * Procedure Codes:?45863 ACTIV E WOUND CARE/20 CM OR <, Modifiers: T6 * Preventive Medicine:? ??Counseling:?Ulcer:?A detailed plan of care was reviewed with the patient. We emphasized the fact that the patient takes on an active participating role in the treatment process and emphasized to them that they are an included, valued, and important member of the wound healing team in order to reach an expedient successful outcome. The patient agreed to follow their medically recommended diet while increasing their protein intake if safely able to do so, maintain proper bodily hydaration, abide by weight-bearing restrictions at all times, quit all current smoking habits if any, and diligently follow any/all dressing change instructions. It was clearly made known to the patient that if they fail to do their part, they will likely extend their course of treatment as well as possibly increase their risk of adverse events including amputation. The patient was instructed on importance of proper wound care consisting of pressure reduction, and proper maintainance of a moist wound environment. The patient is to cleanse the wound with warm soapy water/peroxide/saline, or betadine BID based on product availability. The patient is to apply ( Neosporin, Polysporin, or Triple, ) Antibiotic to the wound and cover with a DSD as directed. The patient was instructed to change dressings according to orders, or PRN saturation, leaks. The patient was instructed to monitor and report any signs or symptoms of infection or any untoward reactions. Precautions Taken: Offloading/Pressure reduction via rest/ limited activity to essential to daily life only, cane/ crutches/ walker/ knee scooter/ wheel chair, shoe modification, accommodative padding, sharp debridement, and take/apply medication as directed. THE GOALS of wound debridement to remove devitilized tissue, decrease risk for infection, promote wound healing and prevent further complication were discussed/reviewed. Debridement frequency as indicated, Every 9-12 weeks until healed.? * Follow Up:?9w * Images: * Sign off status: Completed true * Provider:Lupe Ibarra DPM Date:?2023 Generated for Yolie hi/Temo/Jasson on:?09/08/2024 12:56 PM EDT History and Physical Notes * HPI (History of Present Illness) Category Sub-Category Detail Notes Category Not es Skin problems Treatments: soaks Examination Category Sub-Category Detail Notes Category Not es Dermatologic ULCER: LOCATION, T6, SI ZE, 8mm X 4mm X 2mm, BASE, granular, RIM, hyperkeratotic, UNDERMINING, absent, TRACKING, Full thickness breakdown of skin, DRAINAGE, serosanguineous, mild, NECROTIC TISSUE, loosely-adherent, yellow slough, MALODOR, absent, CALOR, absent, ERYTHEMA, absent, PAIN ON PALPATION, present
--- OUTSIDE RECORDS SUMMARY | 2024-09-08 12:57 | XMS_ITS ---
Author Organization [facility] Address [address] [facility] [place] [address] Care Team Providers Care Pct Name Role Phone Marty Barrera MD Primary Care Provider Bakari Gutierrez Unavailable [phone] Allergies Allergen (clinical drug ingredient) Drug/Non Drug [...] for 30 Days Active Calcium 07/11/2023 Active Dorzolamide HCl-Timolol Mal 2-0.5 % INSTILL 1 DROP INTO BOTH EYES TWICE A DAY Ophthalmic for 30 Days Active Rituxan 100 MG/10ML Intravenous for 42 [...] 08/27/2023 Encounters Encounter Location Date [facility] [place] [address] [place] [address] [place]/27/2023 Bakari Avila Plan Of Treatment No Information Progress Notes * MANUELAdriana CARMONA ADOB: [birth year] (69 yo F)Acc No.[id number]:08/27/2023 Progress Notes Patient:?Adriana CORTEZ A Provider:?Bakari Avila DPM :1955???Age:68 Y???Sex:Female D ate:08/27/2023 Address:[address] [place] [address], [place] Pcp:Marty Barrera MD Subjective: * Chief Complaints: * ???1. Dr Norton. * ROS:?General/Constitutional:?Nausea?denies.?Vomiting?denies.?Hunger Thirst?denies.?Loss appetite?denies.?Chills?denies.?Fatigue?denies.?Fever?denies.?Night Sweats?denies.?Unexplained weight loss?denies.?Unexplained weight gain?denies.?HEENTM:?Dentures?denies.?Dizziness?denies.?Glasses/contacts?denies.?Retinopathy?de nies.?Blurred/double vision?denies.?TMJ?denies.?Discharge/drainage?denies.?Implants?denies.?Sore throat?denies.?Dental implants?denies.?Hard of hearing ?denies.?Difficulty chewing/swallowing/speaking?denies.?Nose bleeds?denies.?Sore mouth?denies.?Respiratory:?On Oxygen?denies.?Pneumonia/pleurisy?denies.?Bronchitis?denies.?Emphysema?denies.?C oughing?denies.?Cough blood?denies.?Shortness of breath?denies.?Wheezing?denies.?Cardiovascular:?Pacemaker?denies.?MVP?denies.?WPW?denies.?CHF?denies.?Heart attack?denies.?Septal defect?denies.?Rapid beat?denies.?Chest pain ?denies.?Atrial Fib.?denies.?Murmur/Palpitations?denies.?Gastrointestinal:?Hemorrhoids?denies.?Stomach/Abdominal pain?denies.?Dark blood stool?denies.?Irritable bowel ?denies.?Constipation?denies.?Diarrhea?denies.?Hematology:?Swelling?denies.?Clots?denies.?Varicose Veins?denies.?Bruising?denies.?Bleeding problem?denies.?Genitourinary:?Blood urine?denies.?Frequent/Painfu/urination/bladder control?denies.?Kidney stones?denies.?Infection (UTI)?denies.?Nephropathy?denies.?sex trans dis (STD)?denies.?Prostate?denies.?Musculoskeletal:?Hammertoes?denies.?Bunions?denies.?Back Pain?admits.?Muscle Cramps/ Resting?denies.?Muscle cramps / walking?denies.?Generalized aches and pains?denies.?Weakness?denies.?Integ.:?Domingo?denies.?Scars?denies.?Corns/calluses?denies.?Ingrown nails?admits.?Painful nails?admits.?Open Sores?denies.?Rashes?denies.?Neurologic:?Difficulty sleeping?denies.?Brain disorder?denies.?Numbness?denies.?Balance trouble?denies.?Confusion?denies.?Fainting/blackouts?denies.?Tingling?denies.?Tr emors?denies.? * Medical History:?Arthritis, Back,Hip,and Knee pain, Broken bones, Cataracts, Covid-19, Glaucoma, Macular degeneration, Osteoporosis, Sinusitis, Warts, Measles, Mumps, Chicken pox, Broken + misaligned spinal discs, Posterior scleritis, left eye. * Surgical History:?cataract s urgery 11/24 & 2020, stereotactic breast biopsy (benign) 06/24/1998, glaucoma 06/16/22, Ingrown Toe Nail , planters wart . * Family History:?Mother: dece ased, arthritis, stroke, foot problems.?Father: , diabetes, stroke, heart attack, high blood pressure.?Paternal Grand Mother: arthritis, stroke.?Paternal Grand Father: stroke, heart attack.?Maternal Grand Mother: arthritis, stroke.?Maternal Grand Father: stroke.?Paternal uncle: cancer.?Siblings: defects.? Cousin - Cancer. * Social History:?Tobacco Use:?Tobacco Use/Smoking?Are you a:?current smoker ?Tobacco use other than smoking?Are you an other tobacco user??No ???Drugs/Alcohol:?Drugs?Have you used drugs other than those for medical reasons in the past 12 months??No ?Alcohol Screen?Did you have a drink containing alcohol in the past year??Yes ?Points?0 ?Interpretation?Negative ???Miscellaneous:?Caffeine: yes, frequency:, 3-5 cups per day. ?Children: yes, 1. ?Exercise: walking, core strength exercise. ?Marital status: . 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 * Medications:?Taking Rituxan 100 MG/10ML Solution Intravenous , Taking Acthrel , Taking Alendronate Sodium 70 MG Tablet Oral , Taking Dorzolamide HCl-Timolol Mal 2-0.5 % Solution INSTILL 1 DROP INTO BOTH EYES TWICE A DAY Ophthalmic , Taking Ketorolac Tromethamine 0.5 % Solution INSTILL 1 DROP INTO LEFT EYE TWICE A DAY Ophthalmic , Taking Calcium , Taking Zinc , Taking Multivitamin * Allergies:?Adhesive: skin se nsitivity, Actemra: body rash, Leflunomide: nausea and diarrhea, Methotrexate: dizziness. Objective: * Vitals:?Ht: 5 ft 1 in, Wt:11 2, BMI:21.16, Shoe size: 8.5 womens, Ht-cm: 154.94 cm, Wt-k.8 kg. Assessment: Plan: * Treatment: * Images: * The named appointment provid er may or may not be the originator of this progress note, and it is not deemed complete until electronically signed by the appointment provider. Sign off status: Pending * Provider:?Bakari Avila DPM Date:? 024 Generated for Yolie hi/Temo/Jasson on:?09/08/2024 12:57 PM EDT
--- OUTSIDE RECORDS SUMMARY | 2024-09-08 12:57 | XMS_ITS ---
Author Organization [facility] Address [address] [facility] [place] [address] Care Team Providers Care Tapper Helper Name Role Phone Marty Barrera MD Primary Care Provider Unavaila jasmine AvilaBakari Unavailable [phone] Black, Telma Unavailable [phone] Allergies Allergen (clinical drug ingredient) Drug/Non Drug Allergy documented on EMR Reaction Allergy Type Onset Date Status leflunomide Leflunomide nausea and diarrhea Drug Allergy Active tocilizumab Actemra body rash Drug Allergy Activ e Adhesive skin sensitivity Allergy Act stevie methotrexate Methotrexate dizziness Drug Allergy A ctive REASON FOR VISIT Painful nail(s) aggrevated by shoes causing difficulty standing/walking, Ingrown Nail Medications Medication SIG (Take, Route, Frequency, Duration) Notes Start Date End Date Status amLODIPine Besylate 2.5 MG 1 tablet Oral ly Once a day for 30 day(s) Active Benadryl Allergy PRN Act stevie Calcium Active Alendronate Sodium 70 MG TAKE 1 TABLET B Y MOUTH ONCE WEEKLY INSTRUCTED Oral for 84 Active Acthar 80 UNIT/ML INJECT 0.5 ML (40 UN ITS) UNDER THE SKIN TWICE EVERY WEEK.DISCARD VIAL 28 DAYS AFTER PUNCTURED Injection for 28 Active Social History Tobacco Use: Social History Observation Description Date Details (start date - stop date) Current Smoker NA - NA Tobacco Use/Smoking Question Answer Notes Are you a: current smoker How often do you smoke cigarettes? every day How many cigarettes a day do you smoke? 11-20 How soon after you wake up d o you smoke your first cigarette? 6-30 minutes Are you interested in quitting? Thinking about q uitting Alcohol Screen Question Answer Notes Did you have a drink contain ing alcohol in the past year? Yes How often did you have a dri nk containing alcohol in the past year? 4 or more times a week (4 points) How often did you have 6 or more drinks on one occasion in the past year? Daily or almost daily (4 points) Points 8 Interpretation Positive Tobacco use other than smoking: Question Answer Notes Are you an other tobacco user? No Vital Signs Height 5 ft 1 in in 08/13/2023 Weight 114 lbs 08/13/2023 BMI 21.54 kg/m2 08/13/2023 Blood pressure systolic 145 mm Hg 08/13/19 24 Blood pressure diastolic 70 mm Hg 024 Procedures Procedure Date Ordered Date Performed Result Body Sit e 86940-Fsriilpi Plate 08/13/2023 N/A Encounters Encounter Location Date Provider Diagnosis [facility] [address] [address] 08/13/2023 Telma Black Ingrown nail L60.0 ; Tinea unguium B35.1 ; Pain in right toe(s) M79.674 and Pain in left toe(s) M79.675 Assessments Encounter Date Diagnosis (ICD Code) Assessment Notes Treatment Notes Treatment Clinical Notes Section Notes 08/13/2023 Ingrown nail (ICD-10 - L60.0) 08/13/2023 Tinea unguium (ICD-10 - B35.1) Patient Educated with: FUNGUS NAIL INFECTIONS.pdf (FUNGUS NAIL INFECTIONS.pdf ) 08/13/2023 Pain in right toe(s) (ICD-10 - M79.674) 08/13/2023 Pain in left toe(s) (ICD-10 - M79.675) Plan Of Treatment Treatment Notes Assessment Notes Tinea unguium Patient Educated wit h: FUNGUS NAIL INFECTIONS.pdf (FUNGUS NAIL INFECTIONS.pdf) Pending Test Test Name Order Date 87797-Enloovqm Plate 08/13/2023 Next Appt Details Follow Up: prn, Reason: Procedure Notes * Category Sub-Category Detail Notes Nail Avulsion Procedure A fine sterile e levator was placed between the eponychium, nail fold, and nail plate to separate the structures. A sterile nail splitter, and/or sterile 316 blade, was then used to longitudinally section the nail along its entire length through the eponychium to the area under the nail fold. The offending portion of nail was from the nail bed with a rolling action and then removed with a hemostat. No underlying bone was identified. There was minimal bleeding as hemostasis was achieved through the temporary use of either a digital tourniquet or the aforementioned local with epinephrine. A bacitracin sterile dressing was applied. Local wound aftercare instructions were discussed and dispensed. The patient was informed of both conservative and future surgical procedures to prevent recurrence. Tylenol or Motrin was recommended for pain or discomfort (50070) , Pt DEFERS matricectomy , Anesthesia 3cc of 1 percent Lid ocaine Plain local anesthesic utilizing aseptic technique Location T6, Total nail, Progress Notes * MANUELAdriana CARMONA ADOB: [birth year] (68 yo F)Acc No.[id number]:08/13/2023 Progress Notes Patient:?Adriana Mullins A Provider:?Telma Ibarra DPM :1955???Age:68 Y???Sex:Female D ate:08/13/2023 Address:[address] [place] [address], [id number] Pcp:Marty Barrera MD Subjective: * Chief Complaints: * ???Painful nail(s) aggrevate d by shoes causing difficulty standing/walkingIngrown Nail * HPI: ???Painful Nails:?Pt States Last PCP Visit:?Date:?07/10/2023 * ROS:?General/Constitutional:?Nausea?denies.?Vomiting?denies.?Hunger Thirst?denies.?Loss appetite?denies.?Chills?denies.?Fatigue?denies.?Fever?denies.?Night Sweats?denies.?Unexplained weight loss?denies.?Unexplained weight gain?denies.?HEENTM:?Dentures?denies.?Dizziness?denies.?Glasses/contacts?denies.?Retinopathy?de nies.?Blurred/double vision?denies.?TMJ?denies.?Discharge/drainage?denies.?Implants?denies.?Sore throat?denies.?Dental implants?denies.?Hard of hearing ?denies.?Difficulty chewing/swallowing/speaking?denies.?Nose bleeds?denies.?Sore mouth?denies.?Respiratory:?On Oxygen?denies.?Pneumonia/pleurisy?denies.?Bronchitis?denies.?Emphysema?denies.?C oughing?denies.?Cough blood?denies.?Shortness of breath?denies.?Wheezing?denies.?Cardiovascular:?Pacemaker?denies.?MVP?denies.?WPW?denies.?CHF?denies.?Heart attack?denies.?Septal defect?denies.?Rapid beat?denies.?Chest pain ?denies.?Atrial Fib.?denies.?Murmur/Palpitations?denies.?Gastrointestinal:?Hemorrhoids?denies.?Stomach/Abdominal pain?denies.?Dark blood stool?denies.?Irritable bowel ?denies.?Constipation?denies.?Diarrhea?denies.?Hematology:?Swelling?denies.?Clots?denies.?Varicose Veins?denies.?Bruising?denies.?Bleeding problem?denies.?Genitourinary:?Blood urine?denies.?Frequent/Painfu/urination/bladder control?denies.?Kidney stones?denies.?Infection (UTI)?denies.?Nephropathy?denies.?sex trans dis (STD)?denies.?Prostate?denies.?Musculoskeletal:?Hammertoes?denies.?Bunions?denies.?Back Pain?denies.?Muscle Cramps/ Resting?denies.?Muscle cramps / walking?denies.?Generalized aches and [...] wake up do you smoke your first cigarette??6-30 minutes ?Are you interested in quitting??Thinking about quitting ?Tobacco use other than smoking?Are you an other tobacco user??No ???Drugs/Alcohol:?Drugs?Have you used drugs other than those for medical reasons in the past 12 months??No ?Alcohol Screen?Did you have a drink containing alcohol in the past year??Yes ?How often did you have a drink containing alcohol in the past year??4 or more times a week (4 points) ?How often did you have 6 or more drinks on one occasion in the past year??Daily or almost daily (4 points) ?Points?8 ?Interpretation?Positive ???Miscellaneous:?Caffeine: yes, frequency:, 3-5 cups per day. ?Children: yes, 1. ?Exercise: yes, walking, core strength exercise. ?Marital status: . 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 * Medications:?TakingBenadryl Allergy , Notes: PRNCalcium amLODIPine Besylate 2.5 MG Tablet 1 tablet Orally Once a dayAlendronate Sodium 70 MG Tablet TAKE 1 TABLET BY MOUTH ONCE WEEKLY INSTRUCTED Oral Acthar 80 UNIT/ML Gel INJECT 0.5 ML (40 UNITS) UNDER THE SKIN TWICE EVERY WEEK.DISCARD VIAL 28 DAYS AFTER PUNCTURED Injection Medication List reviewed and reconciled with the patientTaking Benadryl Allergy , Notes: PRNTaking Calcium Taking [...] * Vitals:?Ht: 5 ft 1 in, Wt:11 4, BMI:21.54, Shoe size:8.5, BP:145/70 mm Hg. * Examination: ???General Examination: ?GENERAL APPEARANCE:?Reveals a pleasant, alert, well nourished, well- developed, well hydrated individual, who demonstrates proper attention to hygiene/body habitus, and is in no acute distress.?ORIENTED:?person, place, and time.?Nails: ?NAILS are:?Elongated, overgrown, dystrophic, lytic, greater than 3mm thick, discolored and friable with crumbly malodorous subungual debris, with pain on palpation , T5 , T9.?Vascular: ?DP PULSES:?2/4, B/L.?PT PULSES:?2/4, B/L.?CAPILLARY FILL TIME:?immediate, all digits, B/L.?SKIN TEMPERTURE GRADIENT OF THE LOWER EXTERMITIES:?normal, warm to cool, proximal to distal, B/L.?HAIR GROWTH/TEXTURE/ELASTICITY/TURGOR:?normal , B/L.?Ingrown Nail: ?INSPECTION:?Reveals nail incurvation, pain on palpation, groove hypertrophy , groove ischemia , Bilateral nail borders , T6 ,?.? Assessment: * Assessment: 1.?Tinea unguium - B35.1 (Pr imary)?2.?Ingrown nail - L60.0?3.?Pain in right toe(s) - M79.674?4.?Pain in left toe(s) - M79.675? Plan: * Treatment: 2.?Ingrown nail?Procedure: 47324-Ckjuztui Plate * Procedures:?Nail Avulsion:?Location?T6, Total nail, ?.?Anesthesia?3cc of 1 percent Lidocaine Plain local anesthesic utilizing aseptic technique?.?Procedure?A fine sterile elevator was placed between the eponychium, nail fold, and nail plate to separate the structures. A sterile nail splitter, and/or sterile 316 blade, was then used to longitudinally section the nail along its entire length through the eponychium to the area under the nail fold. The offending portion of nail was from the nail bed with a rolling action and then removed with a hemostat. No underlying bone was identified. There was minimal bleeding as hemostasis was achieved through the temporary use of either a digital tourniquet or the aforementioned local with epinephrine. A bacitracin sterile dressing was applied. Local wound aftercare instructions were discussed and dispensed. The patient was informed of both conservative and future surgical procedures to prevent recurrence. Tylenol or Motrin was recommended for pain or discomfort (43600) , Pt DEFERS matricectomy ,.? * Procedure Codes:?81355 Avuls ion Plate, Modifiers: XS * Preventive Medicine:? ??Counseling:?Discussion:?-03: Office or other outpatient visit for the evaluation and management of a new patient, which required a medically appropriate history and/or examination and LOW level of DECISION MAKING for: 1 STABLE ACUTE UNCOMPLICATED PROBLEM, 2 OR MORE MINOR PROBLEMS, OR 1 STABLE CHRONIC PROBLEM, THAT POSE(S) A LOW RISK FOR MORBIDITY/MORTALITY. The visit on the day of the encounter encompassed interpreting the data and educating the patient as to the nature of their condition, treatment options available according to their individual PMH, meds, allergies, and overall health/living conditions, as well as any potential risks or complications that may occur from a failure to adhere to, and participate in, the recommended course of therapy. The discussion included a complete verbal, and/or written explanation of the examination results, any x-rays taken, the proposed diagnosis, and outline of the treatment plan. A schedule for future care needs was also explained. The patient verbalized an understanding of the instructions at this time and agreed to be an active participant in their treatment. If the patient should think of any questions or concerns after the visit, I have encouraged the patient to call the office.?Fungal Nail Counseling:?The patient was counseled on the diagnosis, potential etiologies (including, but not limited to, environmental factors, genetic, immune deficiency), and the multiple treatment options for Onychomycosis. We discussed the risks and benefits of each option from performing no treatment, to ultraviolet light shoe treatment, to laser nail treatment, to applying topical antifungals, to taking oral antifungal medication, to surgical removal of the involved nail(s) with or without performing a matricectomy, or any combination thereof. We discussed the advantages and disadvantages of each of possible treatment and importance for adherence to all the recommended therapies for optimum success. This includes the necessity for weekly emery board self nail home debridements, and control the nail and skin environment as much as possible by only using a fresh, dry pair of shoes/socks each day, as well as keeping the skin as dry as possible through the use of sprays/powders if necessary. The patient was instructed to discard the emery board after use to prevent reinfection of the involved nail(s). We discussed the mycological and visual clinical effectiveness of topical vs oral antifungal treatments as well as each ones potential side effects and/or any patient- specific medication interactions. We discussed the reasons behind the important requirement of regular liver function testing with oral antifungal therapy for safety. Patient questions regarding use, dosage, successful outcomes, blood tests, and possible pharmaceutical interactions were reviewed and the patient verbalized that all answers were clearly understood, Discussed use of tea tree oil, vicks vaporub and vinegar soaks.? * Follow Up:?prn * Images: * Sign off status: Completed true * Provider:?Telma Ibarra DPM Date:?2023 Generated for Yolie hi/Temo/Jasson on:?09/08/2024 12:56 PM EDT History and Physical Notes * HPI (History of Present Illness) Category Sub-Category Detail Notes Category Not es Painful Nails Pt States Last PCP Visit: Date:: 07/10/2023 Examination Category Sub-Category Detail Notes Category Not es Ingrown Nail INSPECTION: Reveals nail inc urvation, pain on palpation, groove hypertrophy , groove ischemia , Bilateral nail borders , T6 , General Examination GENERAL APPEARANCE: Reveals a pleasant, alert, well nourished, well-developed, well hydrated individual, who demonstrates proper attention to hygiene/body habitus, and is in no acute distress ORIENTED: person, place, and t keyana Vascular DP PULSES (B): 2/4, B/L PT PULSES (B): 2/4, B/L CAPILLARY FILL TIME: immediate, all digi ts, B/L TEMPERTURE GRADIENT (C): normal, warm to cool, proximal to distal, B/L TROPHIC CONDITION-TEXTURE/ELASTICITY/TURGOR/HAIR GROWTH (B): normal , B/L Nails NAILS are: Elongated, overg rown, dystrophic, lytic, greater than 3mm thick, discolored and friable with crumbly malodorous subungual debris, with pain on palpation , T5 , T9
== END 2024-09-08 12:44 | disposition home or self-care (01) ==
LOC: HO.MAMMO 12:43
PROVIDERS: Absent Provider Internal Medicine; PCP Internal Medicine; Referring Provider Internal Medicine; Visit Provider Internal Medicine
DX: Z12.31 Encounter for screening mammogram for malignant neoplasm of breast (principal)
CPT/HCPCS: 77063; 77067

== ENCOUNTER → 2024-09-08 13:15 | Outpatient (BNV) | payer MEDICARE, OTHER, SELFPAY | PROVIDERS: Absent Provider Internal Medicine; PCP Internal Medicine; Referring Provider Internal Medicine; Visit Provider Internal Medicine | DX: Z12.31 Encounter for screening mammogram for malignant neoplasm of breast (principal) | CPT/HCPCS: 77063; 77067 ==

== ENCOUNTER 2024-09-09 13:39 | Outpatient (AMB) | payer MEDICARE, OTHER, SELFPAY ==
--- NOTE | 2024-09-09 13:44 | MHC.PC.OV ---
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 She has been following with Dr. Vazquez in Rheumatology and is currently on rituximab with good effect. She is also using acthar gel. She had been on Enbrel for years and unfortunately has develop ophthalmologic complications. 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 She has been compliant with amlodipine 2.5mg daily. BP initally elevated at 148/80, and on recheck 118/72. She is now a former smoker, having quit in April. She is interested in lung cancer screenings. Has diagnosed osteoporosis with DEXA scan up to date. Takes calcium and vitamin and regularly performs weight bearing exercise. ROS: General: No fevers, malaise, unintentional weight loss HEENT: No blurred vision, diplopia. No sore throat, nasal congestion, rhinorrhea, sinus pain, ear pain Cardiovascular: No chest pain, palpitations, or leg edema Respiratory: No shortness of breath, wheezing, cough GI: No abdominal pain, nausea, vomiting, diarrhea, constipation, melena, hematochezia : No dysuria, hematuria, increased urinary frequency, decreased urinary output MSK: No myalgia, back pain Neuro: No headaches, weakness, paresthesias Skin: No rashes or lesions Exam: Constitutional - Awake and Alert, No apparent distress Eyes - PERRLA, EOMI Cardiovascular - S1S2, RRR, No edema Respiratory - Normal lung expansion, Normal respiratory effort, No respiratory distress, CTA bilaterally Extremities - no calf tenderness bilaterally, no swelling Musculoskeletal - Normal inspection, normal ROM Skin - Warm/Dry Neurological - Alert & oriented x3 Psychological - Appropriate affect [facility] Medical History (Updated 09/10/24 @ 08:17 by SP Alcantara) Osteoporosis Scleritis Retinal detachment History of cigarette smoking Rheumatoid arthritis HTN (hypertension) Surgical History (Updated 09/08/24 @ 16:47 by Cassidy Connelly) History of colonoscopy (~08/12/08) Physical exam (Primary Care) Vital Signs: Last Vital Signs Temp 97.5 F 09/09/24 13:45 Pulse 78 09/09/24 13:45 Resp 14 09/09/24 13:45 BP 118/72 09/09/24 14:06 Pulse Ox 98 09/09/24 13:45 Oxygen Delivery Method Room Air 09/09/24 13:45 BMI result Body Mass Index 22.3 Coding Level of Care Code New Pt Level 4 (80318) Complex EM visit Add On G2211 Diagnoses HTN (hypertension) I10 Rheumatoid arthritis M06.9 Osteoporosis M81.0 History of cigarette smoking Z87.891 Assessment & Plan Assessment & Plan (1) HTN (hypertension): Code(s): I10 - Essential (primary) hypertension Category: Medical Plan: Controlled on recheck with BP 118/72. Continue amlodipine 2.5mg daily. Low sodium diet (2) Rheumatoid arthritis: Comment: Dr. Vazquez Code(s): M06.9 - Rheumatoid arthritis, unspecified Category: Medical Plan: Stable, no acute flare. Continue rituximab infusions monthly and acthar gel. Follow up with Dr. Vazquez as scheduled. Continue following [facility] ophthamology in [place] for management of scleritis and retinal detachment following enbrel use. (3) Osteoporosis: Code(s): M81.0 - Age-related osteoporosis without current pathological fracture Category: Medical Plan: DXA scan up to date, will request copies from Dr. Muniz. Continue fosamax 70mg weekly. Congratulated on smoking cessation. Continue calcium, vitamin d, and weight bearing exercise. (4) History of cigarette smoking: Code(s): Z87.891 - Personal history of nicotine dependence Category: Medical Plan: Congratulated on cessation. Referred for lung cancer screening. 20 pack year history. Plan Follow up in 6 months. Labs to be completed following visit. Referred for lung cancer screening and for screening colonoscopy Orders: Orders Lipid Panel 09/09/24 SP Alcantara I10 - Essential (primary) hypertension, M06.9 - Rheumatoid arthritis, unspecified, Z13.1 - Encounter for screening for diabetes mellitus, Z13.220 - Encounter for screening for lipoid disorders, Z51.81 - Encounter for therapeutic drug level monitoring Hemoglobin A1c 09/09/24 SP Alcantara I10 - Essential (primary) hypertension, M06.9 - Rheumatoid arthritis, unspecified, Z13.1 - Encounter for screening for diabetes mellitus, Z13.220 - Encounter for screening for lipoid disorders, Z51.81 - Encounter for therapeutic drug level monitoring Basic Metabolic Panel 09/09/24 SP Alcantara I10 - Essential (primary) hypertension, M06.9 - Rheumatoid arthritis, unspecified, Z13.1 - Encounter for screening for diabetes mellitus, Z13.220 - Encounter for screening for lipoid disorders, Z51.81 - Encounter for therapeutic drug level monitoring Liver Panel 09/09/24 SP Alcantara I10 - Essential (primary) hypertension, M06.9 - Rheumatoid arthritis, unspecified, Z13.1 - Encounter for screening for diabetes mellitus, Z13.220 - Encounter for screening for lipoid disorders, Z51.81 - Encounter for therapeutic drug level monitoring TSH reflex Free T4 09/09/24 SP Alcantara I10 - Essential (primary) hypertension, M06.9 - Rheumatoid arthritis, unspecified, Z13.1 - Encounter for screening for diabetes mellitus, Z13.220 - Encounter for screening for lipoid disorders, Z51.81 - Encounter for therapeutic drug level monitoring Referrals Pulmonology Referral SP Alcantara Z87.891 - Personal history of nicotine dependence Gastroenterology Referral Michelle Harris MD Z12.11 - Encounter for screening for malignant neoplasm of colon Medications: New ergocalciferol (vitamin D2) 50 mcg PO .weekly 1 cap 0RF SP Alcantara alendronate 70 mg PO QWEEK 1 tab 0RF SP Alcantara
[2024-09-09 13:45] VITALS: BP 148/80; PULSE 78; RESP 14; TEMP 36.4; O2SAT 98; BMI 22.3
[2024-09-09 14:06] VITALS: BP 118/72
--- OUTSIDE RECORDS SUMMARY | 2024-09-09 14:50 | XMS_ITS ---
[facility] Address [address] [facility] [place] [address] Care Team Providers Care Care Assistant Name Role Phone Marty Barrera MD Primary Care Provider Unavaila jasmine AvilaBakari Unavailable [phone] Black, Telma Unavailable [phone] Allergies Allergen (clinical drug ingredient) Drug/Non Drug [...] Ordered Date Performed Result Body Sit e 26278-Gpfujvuh Plate 08/13/2023 N/A Encounters Encounter Location Date Provider Diagnosis [facility] [address] [address] 08/13/2023 Telma Black Ingrown nail L60.0 ; [...] INFECTIONS.pdf) Pending Test Test Name Order Date 23523-Rxyiblzf Plate 08/13/2023 Next Appt Details Follow Up: [...] Motrin was recommended for pain or discomfort (43518) , Pt DEFERS matricectomy , Anesthesia 3cc of 1 percent Lid ocaine Plain local anesthesic utilizing aseptic technique Location T6, Total nail, Progress Notes * MANUELAdriana CARMONA ADOB: [birth year] (68 yo F)Acc No.[id number]:08/13/2023 Progress Notes Patient:?Adriana Mullins A Provider:?Telma Ibarra DPM :1955???Age:68 Y???Sex:Female D ate:08/13/2023 Address:[address] [place] [address], [facility] Pcp:Marty Barrera MD Subjective: * Chief Complaints: [...] core strength exercise. ?Marital status: . 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 * Medications:?TakingBenadryl Allergy , Notes: PRNCalcium amLODIPine [...] - M79.675? Plan: * Treatment: 2.?Ingrown nail?Procedure: 92990-Deeoivdz Plate * Procedures:?Nail Avulsion:?Location?T6, Total nail, ?.?Anesthesia?3cc [...] Motrin was recommended for pain or discomfort (88330) , Pt DEFERS matricectomy ,.? * Procedure Codes:?81623 Avuls ion Plate, Modifiers: XS * Preventive [...] Ibarra DPM Date:?2023 Generated for Yolie hi/Temo/Jasson on:?09/09/2024 02:50 PM EDT History and Physical Notes * [...]
--- OUTSIDE RECORDS SUMMARY | 2024-09-09 14:50 | XMS_ITS ---
Author Organization [facility] Address [address] [facility] [place] [address] Care Team Providers Care Detacher Name Role Phone Marty Barrera MD Primary Care Provider Unavaila jasmine Austin Bakari Unavailable [phone] Black, Telma Unavailable [phone] Allergies Allergen (clinical drug ingredient) Drug/Non Drug [...] for 28 Active Benadryl Allergy PRN Act stevie Dorzolamide HCl-Timolol Mal 2-0.5 % INSTILL 1 [...] Risk Notes Problem Ulcer of toe of left foot (disorder) ([id number] 401367) Skin ulcer of toe of left foot, limited to breakdown of skin (L97.521) Active confirmed Problem Skin ulcer of toe of right foot, limited to breakdown of skin (L97.511) Active confirmed Vital Signs Height 5 ft 1 in in 08/30/2023 Weight 110 lbs 08/30/2023 BMI 20.78 kg/m2 08/30/2023 Blood pressure systolic 122 mm Hg 08/30/19 24 Blood pressure diastolic 70 mm Hg 024 Procedures Procedure Date Ordered Date Performed Result Body Sit e 58119- Debride <25 sq cm 08/30/2023 N/A Encounters Encounter Location Date Provider Diagnosis [facility] [place] [address] [place] [address] 08/30/2023 Telma Black Skin ulcer of toe [...] INSTRUCTIONS.pdf) Pending Test Test Name Order Date 79253- Debride <25 sq cm 08/30/2023 Next Appt [...] of the wound post debridement is stable (12053) Progress Notes * Adriana CORTEZ ADOB: [birth year] (68 yo F)Acc No.[id number]:08/30/2023 Progress Notes Patient:?Susanna Adriana A Provider:?Telma Ibarra DPM :1955???Age:68 Y???Sex:Female D ate:08/30/2023 Address:[address] [place] [address], [facility] Pcp:Marty Barrera MD Subjective: * Chief Complaints: [...] core strength exercise. ?Marital status: . 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 * Medications:?TakingRituxan 1 00 MG/10ML Solution Intravenous [...] of the wound post debridement is stable (61879).? * Procedure Codes:?37731 ACTIV E WOUND CARE/20 CM OR <, [...]
--- OUTSIDE RECORDS SUMMARY | 2024-09-09 14:50 | XMS_ITS | Patient Health Record ---
Author Organization [facility] Address [address] [facility] [place] [address] Care Team Providers Care Door Glass Installer Name Role Phone Marty Barrera MD Primary Care Provider Bakari Gutierrez Unavailable [phone] Allergies Allergen (clinical drug ingredient) Drug/Non Drug [...] Notes Problem Skin ulcer of toe of right foot, limited to breakdown of skin (L97.511) Active confirmed Problem Ulcer of toe of left foot (disorder) (26143523981 163973) Skin ulcer of toe of left foot, limited to breakdown of skin (L97.521) Active confirmed Plan Of Treatment Pending Test Test Name Order Date 77257-Gbcsifas Plate 08/13/2023 12055- Debride <25 sq cm 08/30/2023 Insurance Providers Payer Name Payer Address Payer Phone Subscriber Number Group Number Insured Name Patient Relationship to Insured Coverage Start Date Coverage End Date Medicare National [employer] [address] [place] [address] [id number] Adriana Mullins Self - patient is the insured [facility] [address] [place] [address] [id number] Adriana Mullins Self - patient is [...]
--- OUTSIDE RECORDS SUMMARY | 2024-09-09 14:51 | XMS_ITS ---
Author Organization [facility] Address [address] [facility] [place] [address] Care Team Providers Care Pharmacist Apprentice Name Role Phone Marty Barrera MD Primary Care Provider Bakari Gutierrez Unavailable [phone] Allergies Allergen (clinical drug ingredient) Drug/Non Drug [...] 08/27/2023 Encounters Encounter Location Date Provider [facility] [address] [place] [address] 08/27/2023 Bakari Avila Plan Of Treatment No Information Progress Notes * MANUELAdriana CARMONA ADOB: [birth year] (69 yo F)Acc No.[id number]:08/27/2023 Progress Notes Patient:?Adriana CORTEZ A Provider:?Bakari Avila DPM :1955???Age:68 Y???Sex:Female D ate:08/27/2023 Address:[address] [place] [address], [place] Pcp:Marty Barrera MD Subjective: * Chief Complaints: [...] core strength exercise. ?Marital status: . 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 * Medications:?Taking Rituxan 100 MG/10ML Solution Intravenous [...] DPM Date:? 024 Generated for Yolie hi/Temo/Jasson on:?09/09/2024 02:50 PM EDT
== END 2024-09-09 14:11 | disposition home or self-care (01) ==
LOC: HO.HMCHD 13:40
PROVIDERS: PCP Internal Medicine; Visit Provider Physician Assistant
DX: I10 Essential (primary) hypertension (principal); M06.9 Rheumatoid arthritis, unspecified; M81.0 Age-related osteoporosis without current pathological fracture; Z87.891 Personal history of nicotine dependence

== ENCOUNTER 2024-09-09 13:39 | Outpatient (REF) | payer MEDICARE, OTHER, SELFPAY ==
[2024-09-09 15:13] LABS: Estimated Average Glucose 97 mg/dL; Hemoglobin A1C 114.6439 umol/L; Total Hemoglobin (HGBA1C) 3654.3064 umol/L
[2024-09-09 15:41] LABS: Alanine Aminotransferase 20 U/L (0-31); Albumin Level 4.4 g/dL (3.5-5.0); Alkaline Phosphatase 62 U/L (39-117); Anion Gap 10 (12-20); Aspartate Amino Transferase 25 U/L (5-31); Bilirubin Direct 0.1 mg/dL (0.0-0.5); Bilirubin Total 0.4 mg/dL (0.0-1.0); Blood Urea Nitrogen 19 mg/dL (9-16); Calcium 9.5 mg/dL (8.4-10.2); Carbon Dioxide 28 mmol/L (22-29); Chloride 105 mmol/L (96-108); Cholesterol 217 mg/dL (<200); Estimated Glomerular Filt Rate > 60; Glucose Random 95 mg/dL (60-115); HDL Cholesterol 74 mg/dL (>40); LDL Cholesterol Calculated 111 mg/dL (<100); Potassium 4.1 mmol/L (3.3-5.1); Sodium 139 mmol/L (135-145); Total Protein 7.2 g/dL (6.5-8.0); Triglycerides 161 mg/dL (<150)
[2024-09-09 15:55] LABS: TSH reflex Free T4 1.01 uIU/mL (0.32-4.0)
== END 2024-09-09 13:40 | disposition home or self-care (01) ==
LOC: HO.LAB 13:39
PROVIDERS: PCP Internal Medicine; Visit Provider Physician Assistant
DX: I10 Essential (primary) hypertension (principal); M06.9 Rheumatoid arthritis, unspecified; M81.0 Age-related osteoporosis without current pathological fracture; Z79.899 Other long term (current) drug therapy; Z87.891 Personal history of nicotine dependence; Z51.81 Encounter for therapeutic drug level monitoring; Z13.1 Encounter for screening for diabetes mellitus; Z13.220 Encounter for screening for lipoid disorders
CPT/HCPCS: 36415; 80048; 80061; 80076; 83036; 84443; 99202

== ENCOUNTER 2024-12-17 14:18 | Outpatient (AMB) | payer MEDICARE, OTHER, SELFPAY ==
--- OUTSIDE RECORDS SUMMARY | 2023-08-27 06:30 | XMS_ITS ---
Author Organization [facility] Address [address] [place] [address] Care Team Providers Care Regulatory Technician Name Role Phone Marty Barrera MD Primary Care Provider Bakari Gutierrez Unavailable [phone] Allergies Allergen (clinical drug ingredient) Drug/Non Drug Allergy documented on EMR Reaction Allergy Type Onset Date Status leflunomide Leflunomide nausea and diarrhea Drug Allergy Active tocilizumab Actemra body rash Drug Allergy Activ e Adhesive skin sensitivity Allergy Act stevie methotrexate Methotrexate dizziness Drug Allergy A ctive REASON FOR VISIT Dr Norton Medications Medication SIG (Take, Route, Frequency, Duration) Notes Start Date End Date Status Zinc 07/11/2023 Active Multivitamin 07/11/2023 Active Ketorolac Tromethamine 0.5 % INSTILL 1 DROP INTO LEFT EYE TWICE A DAY Ophthalmic; Duration: 30 Days Active Calcium 07/11/2023 Active Dorzolamide HCl-Timolol Mal 2-0.5 % INSTILL 1 DROP INTO BOTH EYES TWICE A DAY Ophthalmic; Duration: 30 Days Active Rituxan 100 MG/10ML Intravenous; Duratio n: 42 Days Active Acthrel 07/11/2023 Active Alendronate Sodium 70 MG Oral; Duration: 28 Days Active Social History Tobacco Use: Social History Observation Description Date Details (start date - stop date) Current Smoker NA - NA Tobacco Use/Smoking Question Answer Notes Are you a: current smoker Alcohol Screen Question Answer Notes Did you have a drink containing alcohol in the p ast year? Yes Points 0 Interpretation Negative Tobacco use other than smoking: Question Answer Notes Are you an other tobacco user? No Vital Signs Height 5 ft 1 in in 08/27/2023 Weight 112 lbs 08/27/2023 BMI 21.16 kg/m2 08/27/2023 Encounters Encounter Location Date [facility] [address] [place] [address] 08/27/2023 Bakari Avila Plan Of Treatment No Information Progress Notes * Adriana CORTEZ ADOB: [birth year] (69 yo F)Acc No.[id number]:08/27/2023 Progress Notes Patient: Adriana CONTRERAS A Provider: Katty Avila DPM :1955 A ge:68 Y S ex:Female Date:08/27/2023 Address:[address] [place] [address], [id number] Pcp:Marty Barrera MD Subjective: * Chief Complaints: * [address] Norton. * ROS: G eneral/Constitutional: Nausea d enies. V omiting d enies. H cezar Thirst d enies. L oss appetite d enies. C hills d enies. F atigue d enies.?Fever d enies. N ight Sweats d enies. U nexplained weight loss d enies. U nexplained weight gain d enies. H EENTM: Dentures d enies. D izziness d enies. G lasses/contacts d enies. R etinopathy d enies. B lurred/double vision d enies. T MJ?denies. D ischarge/drainage d enies. I mplants d enies. S ore throat d enies. D ental implants d enies. H lorna of hearing d enies. D ifficulty chewing/swallowing/speaking d enies. N ose bleeds d enies. S ore mouth d enies. ? R espiratory: On Oxygen d enies. P neumonia/pleurisy d enies.?Bronchitis d enies. E mphysema d enies. C oughing d enies. C ough blood?denies. S hortness of breath d enies. W heezing d enies. C ardiovascular: Pacemaker d enies. 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 W PW d enies. C HF d enies. H eart attack d enies. S eptal defect d enies. R apid beat d enies. C hest pain d enies. A trial Fib. d enies. M urmur/Palpitations d enies. G astrointestinal: Hemorrhoids d enies. S tomach/Abdominal pain d enies. D ark blood stool d enies. I rritable bowel d enies. C onstipation d enies. D iarrhea d enies. H ematology: Swelling d enies. C lots d enies. V aricose Veins d enies. B ruising d enies. B leeding problem d enies. G enitourinary: Blood urine d enies. F requent/Painfu/urination/bladder control d enies. K idney stones d enies. I nfection (UTI) d enies. N ephropathy d enies. s ex trans dis (STD) d enies. P rostate d enies. M usculoskeletal: Hammertoes d enies. B unions d enies. B ack Pain a dmits. M uscle Cramps/ Resting d enies. M uscle cramps / walking d enies.?Generalized aches and pains d enies. W eakness d enies. I nteg.: Domingo d enies. S cars d enies. C orns/calluses?denies. I ngrown nails a dmits. P ainful nails a dmits. O pen Sores d enies. R ashes d enies. N eurologic: Difficulty sleeping d enies. B rain disorder d enies. N umbness d enies. B alance trouble d enies. C onfusion d enies. F ainting/blackouts d enies. T ingling d enies. T remors d enies. * Medical History: A rthritis, Back,Hip,and Knee pain, Broken bones, Cataracts, Covid-19, Glaucoma, Macular degeneration, Osteoporosis, Sinusitis, Warts, Measles, Mumps, Chicken pox, Broken + misaligned spinal discs, Posterior scleritis, left eye. * Surgical History: c ataract surgery 11/24 & 2020, stereotactic breast biopsy (benign) 06/24/1998, glaucoma 06/16/22, Ingrown Toe Nail , planters wart . * Family History: M other: , arthritis, stroke, foot problems. F ather: , diabetes, stroke, heart attack, high blood pressure. P aternal Grand Mother: arthritis, stroke. P aternal Grand Father: stroke, heart attack. M aternal Grand Mother: arthritis, stroke. M aternal Grand Father: stroke. P aternal uncle: cancer. S iblings: defects. Cousin - Cancer. * Social History: T obacco Use: T obacco Use/Smoking A re you a: c urrent smoker Tobacco use other than smoking A re you an other tobacco user? N o D rugs/Alcohol: D rugs H ave you used drugs other than those for medical reasons in the past 12 months? N o Alcohol Screen D id you have a drink containing alcohol in the past year? Y es P oints 0 I nterpretation N egative M iscellaneous: C affeine: yes, frequency:, 3-5 cups per day. Children: yes, 1. Exercise: walking, core strength exercise. Marital status: . 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 * Medications: T aking Rituxan 100 MG/10ML Solution Intravenous , Taking Acthrel , Taking Alendronate Sodium 70 MG Tablet Oral , Taking Dorzolamide HCl-Timolol Mal 2-0.5 % Solution INSTILL 1 DROP INTO BOTH EYES TWICE A DAY Ophthalmic , Taking Ketorolac Tromethamine 0.5 % Solution INSTILL 1 DROP INTO LEFT EYE TWICE A DAY Ophthalmic , Taking Calcium , Taking Zinc , Taking Multivitamin * Allergies: A dhesive: skin sensitivity, Actemra: body rash, Leflunomide: nausea and diarrhea, Methotrexate: dizziness. Objective: * Vitals: H t: 5 ft 1 in, Wt:112, BMI:21.16, Shoe size: 8.5 womens, Ht-cm: 154.94 cm, Wt-k.8 kg. Assessment: Plan: * Treatment: * Images: * The named appointment provid er may or may not be the originator of this progress note, and it is not deemed complete until electronically signed by the appointment provider. Sign off status: Pending * Provider: Katty Avila DPM Date: 0 08/27/2023 Generated for Yolie hi/Mehul on: 0 12/17/2024 03:21 PM EDT
--- NOTE | 2024-12-17 14:32 | A.OFFPC_ITS ---
Vital Signs 12/17/24 14:36 12/17/24 15:08 Height 5 ft 2 in Weight 53.977 kg BMI 21.8 BP 143/80 H 132/70 Respiration 16 Pulse 75 Pulse Source Pulse Oximeter Temp 97.9 F Temp Source Temporal Artery Scan Pulse Oximetry (%) 99 Oxygen Delivery Method Room Air Intake Visit Reasons: routine Lactation Nurse Required: No Accompanied by: Self / Same As Patient Allergies No Known Allergies Allergy (Verified 12/17/24 14:33) Tobacco use date assessed: 12/17/24 Fall risk assessment: No Falls in past year Last assessed Fall Risk: 12/17/24 Dental Screening Dental Screen Date: 12/17/24 Did you have a dental visit in the last 12 months?: Yes Did you have a dental problem in the last 6 months where you did not have access to dental care?: No Was dental information given to patient?: No HPI HPI Comments History of Present Illness Details 69-year-old female with history of hyper tension, rheumatoid arthritis, osteoporosis, hyperlipidemia who is an ongoing 1/2 pack of cigarettes per day smoker presents to the office today for follow-up Osteoporosis-on alendronate, managed by Dr. Vazquez. Also on calcium vitamin-D Rheumatoid arthritis-following with the arthritis treatment center. On rituximab infusions as well as XR Hypertension-blood pressure on recheck 132/70. Compliant with amlodipine 2.5 mg daily Hyperlipidemia-on atorvastatin 40 mg daily Cigarette smoking-has cut back to 1/2 pack of cigarettes on a daily basis. She states she will go several days without even smoking a cigarette covdi 11/25 paxlovid- still with some raspy voice, fatigue. somewhat better. occ dizziness- vertigo Concerns: Diagnosed with COVID-19 on 11/25, took Paxlovid. Still feeling fatigued and some congestion Health Maintenance: Last screening mammogram 08/2024 with 1 year follow-up advised, negative for malignancy. Bone density scans being managed by arthritis treatment [facility] Referred for colonoscopy ROS: General: No fevers, malaise, unintentional weight loss HEENT: No blurred vision, diplopia. No sore throat, nasal congestion, rhinorrhea, sinus pain, ear pain Cardiovascular: No chest pain, palpitations, or leg edema Respiratory: No shortness of breath, wheezing, cough GI: No abdominal pain, nausea, vomiting, diarrhea, constipation, melena, hematochezia : No dysuria, hematuria, increased urinary frequency, decreased urinary output MSK: No myalgia, back pain Neuro: No headaches, weakness, paresthesias Skin: No rashes or lesions EXAM: Constitutional - Awake and Alert, No apparent distress Eyes - PERRL Cardiovascular - S1S2, RRR, No edema Respiratory - Normal lung expansion, Normal respiratory effort, No respiratory distress, CTA bilaterally Extremities - no calf tenderness bilaterally, no swelling Skin - Warm/Dry Neurological - Alert & oriented x3 Psychological - [facility]ropriate [facility] History (Updated 10/21/24 @ 16:09 by Penny Hernández PA-C) Nicotine dependence, cigarettes, uncomplicated Hyperlipidemia Osteoporosis Scleritis Retinal detachment Rheumatoid arthritis HTN (hypertension) Surgical History (Updated 09/08/24 @ 16:47 by Cassidy Connelly) History of colonoscopy (~08/12/08) Social History Housing: House Patient Tobacco Use Status: Never used Tobacco Cigarette Packs Per Day: 0.5 e-Cigarette/Vaping Use: Never Used service: No Current occupational status: employed Cognitive needs: No Hearing needs: No Vision needs: No Physical exam (Primary Care) Vital Signs: Last Vital Signs Temp 97.9 F 12/17/24 14:36 Pulse 75 12/17/24 14:36 Resp 16 12/17/24 14:36 BP 132/70 12/17/24 15:08 Pulse Ox 99 12/17/24 14:36 Oxygen Delivery Method Room Air 12/17/24 14:36 BMI result Body Mass Index 21.8 Tobacco/Smoking Status: Tobacco use Status Tobacco use date assessed 12/17/24 12/17/24 14:38 Patient Tobacco Use Status Never used Tobacco 12/17/24 14:38 e-Cigarette/Vaping Use Never Used 12/17/24 14:38 Coding Level of Care Code Est Pt Level 4 (64335) Complex EM visit Add On G2211 Diagnoses HTN (hypertension) I10 Rheumatoid arthritis M06.9 Osteoporosis M81.0 History of cigarette smoking Z87.891 Hyperlipidemia E78.5 Nicotine dependence, cigarettes, uncomplicated F17.210 Assessment & Plan Assessment & Plan (1) HTN (hypertension): Code(s): I10 - Essential (primary) hypertension Category: Medical Plan: Controlled on recheck with BP 118/72. Continue amlodipine 2.5mg daily. Low sodium diet (2) Rheumatoid arthritis: Comment: Dr. Vazquez Code(s): M06.9 - Rheumatoid arthritis, unspecified Category: Medical Plan: Stable, no acute flare. Continue rituximab infusions monthly and acthar gel. Follow up with Dr. Vazquez as scheduled. Continue following [facility] ophthamology in [place] for management of scleritis and retinal detachment following enbrel use. (3) Osteoporosis: Code(s): M81.0 - Age-related osteoporosis without current pathological fracture Category: Medical Plan: DXA scan up to date, will request copies from Dr. Muniz. Continue fosamax 70mg weekly. Congratulated on smoking cessation. Continue calcium, vitamin d, and weight bearing exercise. (4) History of cigarette smoking: Code(s): Z87.891 - Personal history of nicotine dependence Category: Social Hx Plan: Congratulated on cessation. Referred for lung cancer screening. 20 pack year history. (5) Hyperlipidemia: Code(s): E78.5 - Hyperlipidemia, unspecified Category: Medical Plan: Lipid panel ordered. Continue atorvastatin (6) Nicotine dependence, cigarettes, uncomplicated: Code(s): F17.210 - Nicotine dependence, cigarettes, uncomplicated Category: Medical Plan: Continue working on quitting. Encouraged that she has done this in the past and she can do this again Plan Follow up in 6 months. Labs to be completed following visit. Referred for lung cancer screening and for screening colonoscopy Orders: Orders Lipid Panel 6 Months E78.5 - Hyperlipidemia, unspecified, F17.210 - Nicotine dependence, cigarettes, uncomplicated, I10 - Essential (primary) hypertension, M06.9 - Rheumatoid arthritis, unspecified, M81.0 - Age-related osteoporosis without current pathological fracture Liver Panel 6 Months E78.5 - Hyperlipidemia, unspecified, F17.210 - Nicotine dependence, cigarettes, uncomplicated, I10 - Essential (primary) hypertension, M06.9 - Rheumatoid arthritis, unspecified, M81.0 - Age-related osteoporosis without current pathological fracture Complete Blood Count Auto Diff 6 Months E78.5 - Hyperlipidemia, unspecified, F17.210 - Nicotine dependence, cigarettes, uncomplicated, I10 - Essential (primary) hypertension, M06.9 - Rheumatoid arthritis, unspecified, M81.0 - Age- related osteoporosis without current pathological fracture Basic Metabolic Panel 6 Months E78.5 - Hyperlipidemia, unspecified, F17.210 - Nicotine dependence, cigarettes, uncomplicated, I10 - Essential (primary) hypertension, M06.9 - Rheumatoid arthritis, unspecified, M81.0 - Age-related osteoporosis without current pathological fracture
[2024-12-17 14:36] VITALS: BP 143/80; PULSE 75; RESP 16; TEMP 36.6; O2SAT 99; BMI 21.8
[2024-12-17 15:08] VITALS: BP 132/70
--- OUTSIDE RECORDS SUMMARY | 2024-12-17 15:21 | XMS_ITS | Clinical Summary ---
Author Organization [facility] Address [address] [place] [address] Phone Care Team Providers Care Regulatory Affairs Manager Name Role Phone Marty Barrera MD Primary Care Provider Allergies Active Allergy Reactions Criticality Noted Date Comments Leflunomide Diarrhea,Nausea and/or Vomiting Loratadine Rash Low 06/07/2022 Methotrexate Dizziness 06/07/2022 Tocilizumab Rash Low 06/07/2022 Medications acetaZOLAMIDE (DIAMOX) 250 MG tablet Take 250 mg by mouth 3 (three) times a day. 05/02/2022 Active brimonidine (ALPHAGAN) 0.2 % ophthalmic solution INSTILL 1 DROP INTO LEFT EYE TWICE A DAY 05/17/2022 Active dorzolamide-krishna oloL (COSOPT) 22.3-6.8 mg/mL ophthalmic solution Place 1 drop into each eye 2 (two) times a day. 05/17/2022 Active ENBREL SURECLICK 50 mg/mL (1 mL) PnIj 05/01/2022 Active latanoprost (XALATAN) 0.005 % ophthalmic solution Place 1 drop into the left eye nightly at bedtime. 05/30/2022 Active neomycin-polymy marcelino B-dexamethasone (MAXITROL) 3.5 mg/g-10,000 unit/g-0.1 % Oint APPLY 1/2 INCH TO THE SURGICAL EYE 4 TIMES A DAY AFTER SURGERY 05/16/2022 Active predniSONE (DELTASONE) 10 MG tablet Take 20 mg by mouth daily. 04/25/2022 Active RITUXAN 10 mg/mL injection 05/29/2022 Act stevie netarsudiL (RHOPRESSA) 0.02 % ophthalmic solution Place 1 drop into the left eye nightly at bedtime. Dispose of bottle 6 weeks after opening. Active Social History Tobacco Use Types Packs/Day Years Used Date Smoking Tobacco: Every Day Cigarettes 0.5 55.7 Started: 1970 Smokeless Tobacco: Never Tobacco Cessation:Ready to Q uit: Not Asked Alcohol Use Standard Drinks/Week Comments Yes 6 (1 standard drink = 0.6 oz pur e alcohol) Education Answer Date Recorded Are you interested in more education? Not on gonsalo e 08/19/2022 Are you concerned about learning? Not on file 08/19/2022 No 08/19/2022 No 08/19/2022 Digital Access Answer Date Recorded No 09/17/2022 No 09/17/2022 No 09/17/2022 Reliable internet access at home? Not on file 09/17/2022 Device with a working camera? Not on file Intimate Partner Violence Answer Date R ecorded Are you denied basic needs s uch as food, clothing, or medical care? No 06/16/2022 In the past 12 months have y ou been in a relationship with a person who hurts, threatens, or tries to control you? No 06/16/2022 Are you denied basic needs s uch as food, clothing, or medical care? No 06/16/2022 In the past 12 months have y ou been in a relationship with a person who hurts, threatens, or tries to control you? No 06/16/2022 Comments No Sex and Gender Information Value Date Recorded Sex Assigned at Not on file Legal Sex Female 4:26 PM EST Gender Identity Not on file Sexual Orientation Not on file Last Filed Vital Signs Vital Sign Reading Time Taken Comments Blood Pressure 147/92 06/16/2022 2:15 PM EST Pulse 71 06/16/2022 2:00 PM EST Temperature 36.8 C (98.2 F) 06/16/2022 2:00 PM EST Respiratory Rate 19 06/16/2022 2:15 PM EST Oxygen Saturation 98% 06/16/2022 2:15 PM EST Inhaled Oxygen Concentration - - Weight 51.7 kg (114 lb) 06/16/2022 11:59 AM EST Height 156.2 cm (5' 1.5 ) 06/16/2022 11:59 AM ES T Body Mass Index 21.19 06/16/2022 11:59 AM EST Plan of Treatment Health Maintenance Due Date Last Done Comments Adult Td,Tdap Booster 1955 LIPID PANEL 1955 COVID-19 VACCINE (#1) 1959 DEPRESSION SCREENING 1966 SMOKING Hx and SMOKELESS TOB ACCO SCREENING 1967 HEPATITIS C SCREENING 1972 PNEUMOCOCCAL VACCINES (50+ y ears) (1 of 2 - PCV) 1973 ZOSTER VACCINES (1 of 2) 1973 MAMMOGRAM 1994 COLOGUARD 1999 COLONOSCOPY 1999 COLORECTAL CANCER SCREENING 1999 FIT TEST 1999 FOBT 1999 SIGMOIDOSCOPY 1999 VIRTUAL COLONOSCOPY 1999 RSV VACCINE (1 - Risk 60-74 years 1-dose series) 2014 OSTEOPOROSIS SCREENING INITI AL (ONE-TIME) 2019 HEPATITIS A VACCINES Aged Out No long er eligible based on patient's age to complete this topic HIB VACCINES Aged Out No longer eligi ble based on patient's age to complete this topic MENINGOCOCCAL VACCINES (ACWY) Aged Out No longer eligible based on patient's age to complete this topic MENINGOCOCCAL VACCINES (B) Aged Out N o longer eligible based on patient's age to complete this topic Medical Devices Implanted Type Area Foil Stamp Operator Device Identifier Shelf Expiration Date Model / Serial / Lot Permanent Dental Bridge Valve Glaucoma [id number] Ahmed Flexible Plate Silicone Adult - [id number] Implanted:Qty: 1 on 06/16/2022 by Ayden Liu MD at [facility] Left: Eye [employer] 02/03/2024 7 / [id number] / [id number] Graft Allograft 9mm Tanzgraft Spilt Thickness Emma - [id number] Implanted:Qty: 1 on 06/16/2022 by Ayden Liu MD at [facility] Left: Eye [employer] 01/10/2024 [id number] / [id number] / Insurance MEDICARE PART A & B MEDICARE SUPPLEMENT MEDICARE PART A & B MEDICARE SUPPLEMENT MEDICARE PART A & B MEDICARE SUPPLEMENT MEDICARE PART A & B MEDICARE SUPPLEMENT MEDICARE PART A & B MEDICARE SUPPLEMENT MEDICARE PART A [place] [address] [address] [place] [address] MEDICARE SUPPLEMENT Advance Directives For more information, please contact: [phone] (9AM - 5PM [facility], Sunday-Sunday) Documents on File Type Date Recorded Patient Perennial House Manager Expl anation Healthcare Proxy 06/23/2022 4:16 PM Care Teams Regulatory Affairs Manager Relationship Specialty Start Date End Date Marty Barrera MD [address] [place] [address] [address] [place] [address] PCP - General Internal Medicine 05/15/22 Additional Source Comments The information contained in this document represents components of the legal health record. It is not the complete legal health record.[facility]
--- OUTSIDE RECORDS SUMMARY | 2024-12-17 15:21 | XMS_ITS | Patient Health Record ---
[facility] Address [address] [place] [address] Care Team Providers Care Certified Substance Abuse Counselor Name Role Phone Marty Barrera MD Primary Care Provider Bakari Gutierrez Unavailable [phone] Allergies Allergen (clinical drug ingredient) Drug/Non Drug [...] TABLET B Y MOUTH ONCE WEEKLY INSTRUCTED Oral; Duration: 84 Active Acthrel 07/11/2023 Active Acthar 80 UNIT/ML INJECT 0.5 ML (40 UN ITS) UNDER THE SKIN TWICE EVERY WEEK.DISCARD VIAL 28 DAYS AFTER PUNCTURED Injection; Duration: 28 Active Alendronate Sodium 70 MG Oral; Duration: 28 Days Active Dorzolamide HCl-Timolol Mal 2-0.5 % INSTILL 1 DROP INTO BOTH EYES TWICE A DAY Ophthalmic; Duration: 30 Days Active Ketorolac Tromethamine 0.5 % INSTILL 1 DROP INTO LEFT EYE TWICE A DAY Ophthalmic; Duration: 30 Days Active Calcium 07/11/2023 Active Zinc 07/11/2023 Active Multivitamin 07/11/2023 Active Benadryl Allergy PRN Act stevie Calcium Active amLODIPine Besylate 2.5 MG 1 tablet Oral ly Once a day; Duration: 30 day(s) Active Rituxan 100 MG/10ML Intravenous; Duratio n: 42 Days Active Social History Tobacco Use: [...] Ulcer of toe of right foot (disorder) (78623366613 670683) Skin ulcer of toe of right foot, limited to breakdown of skin (L97.511) Active confirmed Problem Ulcer of toe of left foot (disorder) (18689835396 245436) Skin ulcer of toe of left foot, limited to breakdown of skin (L97.521) Active confirmed Plan Of Treatment Pending Test Test Name Order Date 13968-[id number] Plate 08/13/2023 50140- Debride <25 sq cm 08/30/2023 Insurance Providers Payer Name Payer Address Payer Phone Subscriber Number Group Number Insured Name Patient Relationship to Insured Coverage Start Date Coverage End Date Medicare National Govt Svcs Inc [address] [place] [address] [id number] Adriana Mullins Self - patient is the insured [facility] [address] [place] [address] [id number] Adriana Mullins Self - patient is [...]
--- OUTSIDE RECORDS SUMMARY | 2024-12-17 15:21 | XMS_ITS | Patient Health Record ---
Author Organization [facility] Address [address] [place] [address] Care Team Providers Care Hydrological Technical Officer Name Role Phone Michelle Harris M.D. Primary Care Provider Tomas Bueno Jr Unavailable Reason For Referral No Information Plan Of Treatment Next Appt Details Provider Name:Tomas lizama Jr, 12/25/2024 02:35:00 PM, [address], [address], [place], [address], Insurance Providers Payer Name Payer Address Payer Phone Subscriber Number Group Number Insured Name Patient Relationship to Insured Coverage Start Date Coverage End Date MEDICARE OF [facility] [address] [place] [address] [id number] JEFFERSON CORTEZ Self - patient is the insured [facility] [address] [place] [address] [id number] JEFFERSON CORTEZ Self - patient is the insured
--- OUTSIDE RECORDS SUMMARY | 2024-12-17 15:21 | XMS_ITS | Encounter Summary ---
Author Organization [facility] Address [address] [place] [address] [place] [address] Phone Care Team Providers Care Program Proposals Coordinator Name Role Phone Marty Barrera MD Primary Care Provider Encounter Details Date Type Department Care Team (Late st Contact Info) Description 06/16/2022 Procedure Pass COBY LW PERIOP DEPT [address] [place] [address] Social History Tobacco Use Types Packs/Day Years Used Date Smoking Tobacco: Every Day Cigarettes 0.5 55.7 Started: 1970 Smokeless Tobacco: Never Alcohol Use Standard Drinks/Week Comments Yes 6 (1 standard drink = 0.6 oz pur e alcohol) Intimate Partner Violence Answer Date R ecorded [...] on file Sexual Orientation Not on file documented as of this encounter Plan of Treatment Not on file documented as of this encounter Visit Diagnoses Not on filedocumented in this encounter Care Teams Program Proposals Coordinator Relationship Specialty Start Date End Date Marty Barrera MD [address] [place] [address] [place] [address] PCP - General Internal Medicine 1/23/23 documented as of this encounter Additional Source Comments The information contained in this document represents components of the legal health record. It is not the complete legal health record.[facility]
== END 2024-12-17 15:12 | disposition home or self-care (01) ==
LOC: HO.HMCHD 14:19
PROVIDERS: PCP Physician Assistant; Visit Provider Physician Assistant
DX: I10 Essential (primary) hypertension (principal); M06.9 Rheumatoid arthritis, unspecified; Z87.891 Personal history of nicotine dependence; E78.5 Hyperlipidemia, unspecified; F17.210 Nicotine dependence, cigarettes, uncomplicated

== ENCOUNTER → 2024-12-17 14:18 | Outpatient (BNVA) | payer MEDICARE, OTHER, SELFPAY | PROVIDERS: PCP Physician Assistant; Visit Provider Physician Assistant | DX: I10 Essential (primary) hypertension (principal); M06.9 Rheumatoid arthritis, unspecified; M81.0 Age-related osteoporosis without current pathological fracture; E78.5 Hyperlipidemia, unspecified; F17.210 Nicotine dependence, cigarettes, uncomplicated; Z79.899 Other long term (current) drug therapy | CPT/HCPCS: 99212 ==

== ENCOUNTER 2025-01-02 09:15 | Outpatient (AMB) | payer MEDICARE, OTHER, SELFPAY ==
--- OUTSIDE RECORDS SUMMARY | 2023-08-27 06:30 | XMS_ITS ---
[facility] Address [address] [place] [address] Care Team Providers Care Statistical Secretary Name Role Phone Marty Barrera MD Primary Care Provider Bakari Gutierrez Unavailable [phone] Allergies Allergen (clinical drug ingredient) Drug/Non Drug [...] 08/27/2023 Encounters Encounter Location Date [facility] [address] [place] [address] 08/27/2023 Bakari Avila Plan Of Treatment No Information Progress Notes * Adriana CORTEZ ADOB: [birth year] (69 yo F)Acc No.[id number]:08/27/2023 Progress Notes Patient: Adriana CONTRERAS A Provider: Katty Avila DPM :1955 A ge:68 Y S ex:Female Date:08/27/2023 Address:[address] [place] [address], [id number] Pcp:Marty Barrera MD Subjective: * Chief Complaints: [...] enies. C ardiovascular: Pacemaker d enies. 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 W PW d enies. C [...] core strength exercise. Marital status: . 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 * Medications: T aking Rituxan 100 MG/10ML [...] DPM Date: 0 08/27/2023 Generated for Yolie hi/Temo/Jasson on: 0 01/02/2025 10:12 AM EDT
--- NOTE | 2025-01-02 08:01 | MHC.OFFVIS ---
Intake Visit Reasons: Current Smoker Allergies No Known Allergies Allergy (Verified 12/17/24 14:33) HPI HPI Current Smoker: Details: Initial visit for this 69 smoker with a 25+PYH. Patient started smoking at age 14 for 54 years at 1/2ppd. . Denies marijuana use. Denies second hand smoke exposure. Denies exposure to chemicals or substances like asbestos. . Denies known family history of lung cancer. Denies personal history of cancers. Denies chest CT in last year. . Denies recent travel outside the [place]. Denies recent respiratory illness or recent hospitalization for respiratory issues. History of testing positive for COVID. Admits receiving COVID Vaccine. x2. . Denies fever, chills, new/worsening cough, hemoptysis, hoarseness or dysphagia. Denies significant chest pain, significant dyspnea or unintentional weight loss. Patient Lung Cancer Screening Questionnaire reviewed with patient by provider. . Shared Decision Making Completed. Patient meets criteria. Discussed in detail with patient, the risk vs benefit of LDCT screening. Patient consents to proceed with scan. Discussed smoking cessation. [facility] Medical History (Updated 01/02/25 @ 09:27 by Penny Hernández PA-C) Nicotine dependence, cigarettes, uncomplicated Hyperlipidemia Osteoporosis Scleritis Retinal detachment Rheumatoid arthritis HTN (hypertension) Surgical History (Updated 09/08/24 @ 16:47 by Cassidy Connelly) History of colonoscopy (~08/12/08) Social History (Updated 01/02/25 @ 09:25 by Penny Hernández PA-C) Housing: House Patient Tobacco Use Status: Current everyday Tobacco user Cigarette Packs Per Day: 0.5 Years Smoked: (onset 14yo, 1/2ppd x 55yrs, 25+pyh) e-Cigarette/Vaping Use: Never Used service: No Current occupational status: employed Cognitive needs: No Hearing needs: No Vision needs: No Assessment & Plan Assessment & Plan (1) Nicotine dependence, cigarettes, uncomplicated: Comment: (onset 14yo, 1/2ppd x 55yrs, 25+pyh) Code(s): F17.210 - Nicotine dependence, cigarettes, uncomplicated Category: Medical Plan: - SDM visit completed today in office. - Patient meets criteria for LDCT for lung cancer screening purposes and is asymptomatic. - Smoking cessation counseling offered. Patients can always call [phone]. - Will arrange for a LDCT scan of the chest for screening purposes at [facility]. - Risks, benefits, and alternatives were discussed in detail and the patient agrees to proceed. - Risks discussed include but are not limited to: radiation exposure, anxiety during testing and while awaiting results, false negatives, false positives and possibility of additional intervention such as further imaging or surgical procedures for benign disease. - Benefits are obviously detection of lung cancer at an early stage which can lead to improved outcomes. - Discussed the importance of screening program compliance with adherence to yearly LDCT scan as scheduled - or sooner interval scans for personalized screening regimen. - Discussed follow up plan. Our office will send a letter discussing results and if needed set up phone call and office visit based on CT findings. - Patient educated on results categorization and the management decisions for suspicious findings potentially found on the screening LDCT scan. Any patient with a Lung RADS score of 3 or 4 will be reviewed by a multidisciplinary team at [facility] to form a plan of action in regards to scan findings. - If further work up is warranted for a suspicious lung finding this will be followed by the Lung Cancer Screening program in conjunction with the Thoracic Surgery Department at [facility]. - A copy of the office note and LDCT will be sent to the patient's PCP - as well as documentation on any associated further plans of care. - Incidental findings on LDCT are the PCP's responsibility. These findings are indicated with an S finding on the LDCT Assessment. A note discussing the findings will be sent to the PCP who is then responsible for further management. - All questions answered.? Coding Level of Care Code Lung Cancer Screening G0296 Diagnoses Nicotine dependence, cigarettes, uncomplicated F17.210
--- OUTSIDE RECORDS SUMMARY | 2025-01-02 10:13 | XMS_ITS | Patient Health Record ---
Author Organization [facility] Address [address] [place] [address] Care Team Providers Care Managing Attorney Name Role Phone Michelle Harris M.D. Primary [...] [facility] [address] [place] [address] 12/25/2024 Tomas Sterling Jr Encounter for screening [...] Name:Tomas lizama Jr, 02/13/2025 10:00:00 AM, [address] [facility] , [place], [place], [id number], Insurance Providers Payer Name Payer Address Payer Phone Subscriber Number Group Number Insured Name Patient Relationship to Insured Coverage Start Date Coverage End Date MEDICARE OF [place] [address] [place] [address] [id number] JEISON CORTEZ Self - patient is the insured [facility] [address] [place] [address] [phone] [id number] JEISON CORTEZ Self - patient is the insured 4 Medical (General) History Medical History History ICD Code Hypertension Osteoporosis Rheumatoid arthritis Scleritis Surgical History Surgery Date(Month/Year) breast biopsy 1998
--- OUTSIDE RECORDS SUMMARY | 2025-01-02 10:13 | XMS_ITS | Patient Health Record ---
[facility] Address [address] [place] [address] Care Team Providers Care Veneer Lathe Operator Name Role Phone Marty Barrera MD Primary Care Provider Bakari Gutierrez Unavailable [phone] Allergies Allergen (clinical drug ingredient) Drug/Non Drug [...] Ulcer of toe of right foot (disorder) (83264900572 842143) Skin ulcer of toe of right foot, limited to breakdown of skin (L97.511) Active confirmed Problem Ulcer of toe of left foot (disorder) (59835801139 918326) Skin ulcer of toe of left foot, limited to breakdown of skin (L97.521) Active confirmed Plan Of Treatment Pending Test Test Name Order Date [id number] Plate 08/13/2023 57759- Debride <25 sq cm 08/30/2023 Insurance Providers Payer Name Payer Address Payer Phone Subscriber Number Group Number Insured Name Patient Relationship to Insured Coverage Start Date Coverage End Date Medicare National Govt Svcs Inc [address] [place] [address] [id number] Adriana Mullins Self - patient is the insured [facility] [address] [place] [address] [phone] [id number] Adriana Mullins Self - patient is [...]
--- OUTSIDE RECORDS SUMMARY | 2025-01-02 10:13 | XMS_ITS | Clinical Summary ---
Author Organization [facility] Address [address] [place] [address] Phone Care Team Providers Care Equipment Monitor Phototypesetting Name Role Phone Marty Barrera MD Primary [...] this topic Medical Devices Implanted Type Area Lithographic Plate Maker Apprentice Device Identifier Shelf Expiration Date Model / Serial / Lot Permanent Dental Bridge Valve Glaucoma [id number] Ahmed Flexible Plate Silicone Adult - [id number] Implanted:Qty: 1 on 06/16/2022 by Ayden Liu MD at [facility] Left: Eye [facility] 02/03/2024 7 / [id number] / [id number] Graft Allograft 9mm Tanzgraft Spilt Thickness Miguel Barrera - [id number] Implanted:Qty: 1 on 06/16/2022 by Ayden Liu MD at [facility] Left: Eye [employer]NE[employer]EN 01/10/2024 [id number] / [id number] / Insurance MEDICARE PART A & B MEDICARE SUPPLEMENT MEDICARE PART A & B MEDICARE SUPPLEMENT MEDICARE PART A & B MEDICARE SUPPLEMENT MEDICARE PART A & B MEDICARE SUPPLEMENT MEDICARE PART A & B MEDICARE SUPPLEMENT MEDICARE PART A & B MEDICARE SUPPLEMENT Advance Directives For more information, please contact: [phone] (9AM - 5PM [facility], Sunday-Sunday) Documents on File Type Date Recorded Patient Journeyman Welder Expl anation Healthcare Proxy 06/23/2022 4:16 PM Care Teams Equipment Monitor Phototypesetting Relationship Specialty Start Date End Date Marty Barrera MD [address] [place] [address] [place] [address] PCP - General Internal Medicine 05/15/22 Additional Source Comments The information contained in this document represents components of the legal health record. It is not the complete legal health record.[facility]
--- OUTSIDE RECORDS SUMMARY | 2025-01-02 10:13 | XMS_ITS | Encounter Summary ---
Author Organization [facility] Address [address] [facility] [address] [place] [address] Phone Care Team Providers Care Manager Image Name Role Phone Marty Barrera MD Primary Care Provider Encounter Details Date Type Department Care Team (Late st Contact Info) Description 06/16/2022 Procedure Pass COBY LW PERIOP DEPT [address] [place] [address] Social History Tobacco Use Types Packs/Day Years [...] on filedocumented in this encounter Care Teams Manager Image Relationship Specialty Start Date End Date Marty Barrera MD [address] [place] [address] [place] [address] PCP - General Internal Medicine 1/23/23 documented as of this encounter Additional Source Comments The information contained in this document represents components of the legal health record. It is not the complete legal health record.[facility]
== END 2025-01-02 10:06 | disposition home or self-care (01) ==
PROVIDERS: PCP Internal Medicine; Referring Provider Physician Assistant; Visit Provider Physician Assistant Medical
DX: F17.210 Nicotine dependence, cigarettes, uncomplicated (principal)
CPT/HCPCS: G0296

== ENCOUNTER 2025-01-02 09:33 | Outpatient (REF) | payer MEDICARE, OTHER, SELFPAY ==
--- NOTE | ~2025-01-02 | CT_ITS ---
CLINICAL HISTORY: F17.210 - Nicotine dependence, cigarettes, uncomplicated CT lung cancer screening (LDCT) Comparison: CT/SR - CT CHEST WITHOUT IV CONTRAST - 04/04/21 13:12 EST Technique: Axial CT images of the chest using low-dose technique. Referring provider counseled the patient on shared decision-making for LDCT screening. Additional counseling was provided on smoking cessation. Effective radiation dose total: DLP 28.6 mGycm, CTDIvol 0.8 mGy. Findings: Lung: No evidence of pneumonia or edema. There is a new ground-glass nodule within the right upper lobe medially measuring 12 mm (image 25). Previously seen bilateral pulmonary nodules are stable. For example, stable 5 mm nodule within the right upper lobe laterally (image 28). Coronary artery calcifications: Mild Limited upper abdomen: Unremarkable Other: None IMPRESSION: 1. Coronary artery disease. 2. New right upper lobe pulmonary nodule as described above. LungRADS 4B - Suspicious: PET/CT, and/or tissue sampling recommended depending on the probability of malignancy and comorbidities. ##L4B## This document has been electronically signed by: Kraig Acosta MD on 01/02/2025 16:39:11
== END 2025-01-02 09:34 | disposition home or self-care (01) ==
LOC: HO.CT 09:33
PROVIDERS: PCP Physician Assistant; Visit Provider Physician Assistant Medical
DX: Z12.2 Encounter for screening for malignant neoplasm of respiratory organs (principal); F17.210 Nicotine dependence, cigarettes, uncomplicated
CPT/HCPCS: 71271; G0296

== ENCOUNTER → 2025-01-02 09:35 | Outpatient (BNV) | payer MEDICARE, OTHER, SELFPAY | PROVIDERS: PCP Physician Assistant; Visit Provider Radiology Diagnostic Radiology | DX: F17.210 Nicotine dependence, cigarettes, uncomplicated (principal) | CPT/HCPCS: 71271 ==

== ENCOUNTER 2025-02-10 15:05 | Outpatient (AMB) | payer MEDICARE, OTHER, SELFPAY ==
--- OUTSIDE RECORDS SUMMARY | 2023-08-27 06:30 | XMS_ITS ---
Author Organization [facility] Address [address] [place] [address] Care Team Providers Care Sales And Leasing Consultant Name Role Phone Marty Barrera MD Primary Care Provider Bakari Nicole Unavailable [phone] Allergies Allergen (clinical drug ingredient) Drug/Non Drug [...] 08/27/2023 Encounters Encounter Location Date Provider Diagnosis [facility] [place] [address] [place] [address] 08/27/2023 Bakari Raymond Plan Of Treatment No Information Progress Notes * Adriana CORTEZ ADOB: [birth year] (69 yo F)Acc No.[id number]:08/27/2023 Progress Notes Patient: Adriana CONTRERAS Provider: Katty Avila DPM :1955 A ge:68 Y S ex:Female Date:08/27/2023 Address:[address] [place] [address], [place] Pcp:Marty Barrera MD Subjective: * Chief Complaints: [...] enies. C ardiovascular: Pacemaker d enies. M C++ PROFESSOR d enies. W PW d enies. C [...] core strength exercise. Marital status: . 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 * Medications: T aking Rituxan 100 MG/10ML [...] DPM Date: 0 08/27/2023 Generated for Yolie Mack/Jasson on: 08:18 PM EDT
--- NOTE | 2025-02-10 15:13 | MHC.PC.OV ---
Vital Signs 02/10/25 15:27 Height 5 ft 2 in Weight 52.163 kg BMI 21.0 BP 146/68 H Blood Pressure Location Lt brachial Position Sitting Respiration 18 Pulse 78 Pulse Source Pulse Oximeter Temp 97.9 F Temp Source Temporal Artery Scan Pulse Oximetry (%) 98 Oxygen Delivery Method Room Air Intake Visit Reasons: Cold x 1 month Tombstone Polisher Required: No Accompanied by: Self / Same As Patient Allergies No Known Allergies Allergy (Verified 02/10/25 15:14) Tobacco use date assessed: 12/17/24 Dental Screening Dental Screen Date: 12/17/24 HPI HPI Comments History of Present Illness Details 69-year-old female with history of hypertension, rheumatoid arthritis, osteoporosis, hyperlipidemia who is an ongoing 1/2 pack of cigarettes per day smoker presents to the office today for evaluation Osteoporosis-on alendronate, managed by Dr. Vazquez. Also on calcium vitamin-D Rheumatoid arthritis-following with the arthritis treatment center. On rituximab infusions as well as XR Hypertension-blood pressure on recheck 132/70. Compliant with amlodipine 2.5 mg daily Hyperlipidemia-on atorvastatin 40 mg daily Cigarette smoking-has cut back to 1/2 pack of cigarettes on a daily basis. She states she will go several days without even smoking a cigarette. working to cut back. has tried nrt with adverse Concerns: Diagnosed with COVID on 11/25 and was prescribed Paxlovid. Diagnosed with COVID-19 on 11/25, took Paxlovid. Still feeling fatigued and some congestion. Continues with productive cough yellow sputum. Some sob, no wheezing. Feels chest congestion. No fevers. Has pleuritic cp. Does have new pulm nodules, bx 04/30 Health Maintenance: Last screening mammogram 08/2024 with 1 year follow-up advised, negative for malignancy. Bone density scans being managed by arthritis treatment Centers Referred for colonoscopy ROS: See HPI EXAM: Constitutional - Awake and Alert, No apparent distress Eyes - PERRL Cardiovascular - S1S2, RRR, No edema Respiratory - Normal lung expansion, Normal respiratory effort, No respiratory distress, bilateral wheezing Extremities - no calf tenderness bilaterally, no swelling Skin - Warm/Dry Neurological - Alert & oriented x3 Psychological - Appropriate affect [facility] Medical History (Updated 02/10/25 @ 15:47 by SP Alcantara) Hyperplastic colon polyp Nicotine dependence, cigarettes, uncomplicated Hyperlipidemia Osteoporosis Scleritis Retinal detachment Rheumatoid arthritis HTN (hypertension) Surgical History (Updated 01/05/25 @ 09:56 by Penny Hernández PA-C) History of colonoscopy (~2008) Social History (Updated 01/02/25 @ 09:25 by Penny Hernández PA-C) Housing: House Patient Tobacco Use Status: Current everyday Tobacco user Cigarette Packs Per Day: 0.5 Years Smoked: (onset 14yo, 1/2ppd x 54yrs, 25+pyh) Packs Per Year: 0 e-Cigarette/Vaping Use: Never Used service: No Current occupational status: employed Cognitive needs: No Hearing needs: No Vision needs: No Physical exam (Primary Care) Vital Signs: Last Vital Signs Temp 97.9 F 02/10/25 15:27 Pulse 78 02/10/25 15:27 Resp 18 02/10/25 15:27 BP 146/68 H 02/10/25 15:27 Pulse Ox 98 02/10/25 15:27 Oxygen Delivery Method Room Air 02/10/25 15:27 BMI result Body Mass Index 21.0 Tobacco/Smoking Status: Tobacco use Status Tobacco use date assessed 12/17/24 02/10/25 15:14 Patient Tobacco Use Status Current everyday Tobacco 02/10/25 15:14 e-Cigarette/Vaping Use Never Used 02/10/25 15:14 Coding Level of Care Code Est Pt Level 4 (93222) Complex EM visit Add On G2211 Diagnoses HTN (hypertension) I10 Hyperlipidemia E78.5 Osteoporosis M81.0 Productive cough R05.8 Nicotine dependence, cigarettes, uncomplicated F17.210 Assessment & Plan Assessment & Plan (1) HTN (hypertension): Code(s): I10 - Essential (primary) hypertension Category: Medical Plan: Controlled on recheck. Continue amlodipine 2.5 mg daily (2) Hyperlipidemia: Code(s): E78.5 - Hyperlipidemia, unspecified Category: Medical Plan: Lipid panel ordered. She did discontinue atorvastatin on her own. Discussed the importance of statin given associated smoking and increased cardiovascular risk. (3) Osteoporosis: Code(s): M81.0 - Age-related osteoporosis without current pathological fracture Category: Medical Plan: Continue with calcium and vitamin-D. Recommend increased weight-bearing exercise. Again strongly advised against cigarette smoking. (4) Productive cough: Code(s): R05.8 - Other specified cough Category: Medical Plan: Chest x-ray ordered. Given short course of prednisone as well as Robitussin AC. Use albuterol inhaler as needed. Follow-up with pulmonology (5) Nicotine dependence, cigarettes, uncomplicated: Comment: (onset 14yo, 1/2ppd x 54yrs, 25+pyh) Code(s): F17.210 - Nicotine dependence, cigarettes, uncomplicated Category: Medical Plan: As above Plan Follow-up in the office in 6 months Orders: Orders XR chest 2V 02/10/25 R05.8 - Other specified cough, R06.00 - Dyspnea, unspecified
[2025-02-10 15:27] VITALS: BP 146/68; PULSE 78; RESP 18; TEMP 36.6; O2SAT 98; BMI 21.0
--- OUTSIDE RECORDS SUMMARY | 2025-02-10 20:18 | XMS_ITS | Patient Health Record ---
[facility] Address [address] [facility] [place] [address] Care Team Providers Care Biology Adjunct Instructor Name Role Phone Marty Barrera MD Primary Care Provider Bakari Nicole Unavailable [phone] Allergies Allergen (clinical drug ingredient) Drug/Non Drug [...] Ulcer of toe of right foot (disorder) (32682841899 707120) Skin ulcer of toe of right foot, limited to breakdown of skin (L97.511) Active confirmed Problem Ulcer of toe of left foot (disorder) (00614416618 290499) Skin ulcer of toe of left foot, limited to breakdown of skin (L97.521) Active confirmed Plan Of Treatment Pending Test Test Name Order Date [id number]-Vvndcwpz Plate 08/13/2023 50910- Debride <25 sq cm 08/30/2023 Insurance Providers Payer Name Payer Address Payer Phone Subscriber Number Group Number Insured Name Patient Relationship to Insured Coverage Start Date Coverage End Date Medicare National Govt Svcs Inc [address] [place] [address] [id number] Adriana Mullins Self - patient is the insured [facility] [address] [place] [address] [id number] Adriana Mullins Self - patient is [...]
--- OUTSIDE RECORDS SUMMARY | 2025-02-10 20:19 | XMS_ITS | Patient Health Record ---
Author Organization [facility] Address [address] [place] [address] Care Team Providers Care Clinical Programmer Name Role Phone Michelle Harris M.D. Primary Care Provider Yvonne Sterling Jr Tomas Unavailable [phone] Allergies Allergen (clinical drug ingredient) Drug/Non Drug [...] MG 1 tablet Orall y Once a day; Duration: 30 day(s) 12/25/2024 Active Acthar 80 UNIT/ML 1 mL Injection; Dura tion: 30 day(s) 12/25/2024 Active Immunizations Vaccine Route Administration [...] 12/25/2024 Encounters Encounter Location Date Provider Diagnosis [facility] [address] [place] [address] 12/25/2024 Tomas Sterling Jr Encounter for screening for malignant neoplasm of colon Z12.11 [facility] [address] [place] [address] 02/09/2025 Tomas Sterling Jr Assessments Encounter Date Diagnosis (ICD Code) Assessment [...] Next Appt Details Provider Name:Tomas lizama Jr, 03/27/2025 08:20:00 AM, [address] [facility] , [place], [place], [phone], Insurance Providers Payer Name Payer Address Payer Phone Subscriber Number Group Number Insured Name Patient Relationship to Insured Coverage Start Date Coverage End Date MEDICARE OF [place] [address] [place], [place] [id number] JEISON CORTEZ Self - patient is the insured 0 [facility] [address] [place] [address] [phone] [id number] JEISON CORTEZ Self - patient is the insured 4 Medical (General) History Medical History History ICD Code Hypertension Osteoporosis Rheumatoid arthritis Scleritis Surgical History Surgery Date(Month/Year) breast biopsy 1998
--- OUTSIDE RECORDS SUMMARY | 2025-02-10 20:19 | XMS_ITS | Encounter Summary ---
Author Organization [facility] Address [address] [place] [address] [place] [address] Phone Care Team Providers Care Heat Set Operator Name Role Phone Marty Barrera MD Primary Care Provider Encounter Details Date Type Department Care Team (Late st Contact Info) Description 06/16/2022 Procedure Pass COBY LW PERIOP DEPT [address] [place] [address] Social History Tobacco Use Types Packs/Day Years Used Date Smoking Tobacco: Every Day Cigarettes 0.5 55.8 Started: 1970 Smokeless Tobacco: Never Alcohol Use Standard Drinks/Week [...] on filedocumented in this encounter Care Teams Heat Set Operator Relationship Specialty Start Date End Date Marty Barrera MD [address] [place] [address] [place] [address] PCP - General Internal Medicine 1/23/23 documented as of this encounter Additional Source Comments The information contained in this document represents components of the legal health record. It is not the complete legal health record.[facility]
--- OUTSIDE RECORDS SUMMARY | 2025-02-10 20:19 | XMS_ITS | Clinical Summary ---
Author Organization [facility] Address [address] [place] [address] Phone Care Team Providers Care Airborne Missions Systems Name Role Phone Marty Barrera MD Primary [...] Tobacco: Every Day Cigarettes 0.5 55.8 Started: 1971 Smokeless Tobacco: Never Tobacco Cessation:Ready [...] COLONOSCOPY 1999 RSV VACCINE (1 - Risk 50-74 years 1-dose series) 2004 OSTEOPOROSIS SCREENING INITI AL (ONE-TIME) 2019 INFLUENZA [...] this topic Medical Devices Implanted Type Area Site Project Manager Device Identifier Shelf Expiration Date Model / Serial / Lot Permanent Dental Bridge Valve Glaucoma [id number] Ahmed Flexible Plate Silicone Adult - [id number] Implanted:Qty: 1 on 06/16/2022 by Ayden Liu MD at [facility] Left: Eye [facility] 02/03/2024 7 / [id number] Graft Allograft 9mm Tanzgraft Spilt Thickness [employer]augh - [id number] Implanted:Qty: 1 on 06/16/2022 by Ayden Liu MD at [facility] Left: Eye [employer] 01/10/2024 [id number] / [id number] / Insurance MEDICARE PART A & B MEDICARE SUPPLEMENT MEDICARE PART A & B MEDICARE SUPPLEMENT MEDICARE PART A & B MEDICARE SUPPLEMENT MEDICARE PART A & B MEDICARE SUPPLEMENT MEDICARE PART A & B MEDICARE SUPPLEMENT MEDICARE PART A & B MEDICARE SUPPLEMENT Advance Directives For more information, please contact: [phone] (9AM - 5PM [facility], Sunday-Sunday) Documents on File Type Date Recorded Patient Speech Language Pathologist Prn Expl anation Healthcare Proxy 06/23/2022 4:16 PM Care Teams Airborne Missions Systems Relationship Specialty Start Date End Date Marty Barrera MD [address] [place] [address] [address] [place] [address] PCP - General Internal Medicine 05/15/22 Additional Source Comments The information contained in this document represents components of the legal health record. It is not the complete legal health record.[facility]
== END 2025-02-10 15:57 | disposition home or self-care (01) ==
LOC: HO.HMCHD 15:05
PROVIDERS: PCP Physician Assistant; Visit Provider Physician Assistant
DX: I10 Essential (primary) hypertension (principal); E78.5 Hyperlipidemia, unspecified; M81.0 Age-related osteoporosis without current pathological fracture; R05.8 Other specified cough; F17.210 Nicotine dependence, cigarettes, uncomplicated

== ENCOUNTER 2025-02-10 15:05 | Outpatient (REF) | payer MEDICARE, OTHER, SELFPAY ==
--- NOTE | ~2025-02-10 | XR_ITS ---
EXAMINATION: XR CHEST CLINICAL INFORMATION: R05.8 - Other specified cough COMPARISON: Previous chest x-ray February [address] December 2024 TECHNIQUE: 2 views of the chest were obtained. FINDINGS: The lungs are well-inflated. The lungs are clear without evidence of pulmonary edema or consolidation. No pleural effusion or pneumothorax. Cardiac and mediastinal contours are normal. Degenerative changes of the spine. Slight loss of height of the T9 vertebral body question mild compression fracture versus Schmorl's node unchanged. XR/XR chest 2V IMPRESSION: No evidence for acute disease in the chest. Electronically signed by: Deepthi Sen MD 02/10/2025 04:26 PM EDT
== END 2025-02-10 15:06 | disposition home or self-care (01) ==
LOC: HO.XRAY 15:05
PROVIDERS: PCP Physician Assistant; Visit Provider Physician Assistant
DX: R06.00 Dyspnea, unspecified (principal); R05.8 Other specified cough; I10 Essential (primary) hypertension; E78.5 Hyperlipidemia, unspecified; M81.0 Age-related osteoporosis without current pathological fracture; F17.210 Nicotine dependence, cigarettes, uncomplicated
CPT/HCPCS: 71046; 99212

== ENCOUNTER → 2025-02-10 16:08 | Outpatient (BNV) | payer MEDICARE, OTHER, SELFPAY | PROVIDERS: PCP Physician Assistant; Visit Provider Radiology Diagnostic Radiology | DX: R05.8 Other specified cough (principal) | CPT/HCPCS: 71046 ==

== ENCOUNTER 2025-03-27 07:04 | Day surgery (SDC) | payer MEDICARE, OTHER, SELFPAY ==
--- OUTSIDE RECORDS SUMMARY | 2023-08-27 06:30 | XMS_ITS ---
Author [facility] Address [address] [place] [address] Care Team Providers Care Material Distributor Name Role Phone Marty Barrera MD Primary Care Provider Bakari Gutierrez Unavailable [phone] Allergies Allergen (clinical drug ingredient) Drug/Non Drug [...] 08/27/2023 Encounters Encounter Location Date Provider [facility] [address] [place] [address] 08/27/2023 Bakari Avila Plan Of Treatment No Information Progress Notes * Adriana CORTEZ ADOB: [birth year] (69 yo F)Acc No.[id number]:08/27/2023 Progress Notes Patient: Adriana CONTRERAS A Provider: Katty Avila DPM :1955 A ge:68 Y S ex:Female Date:08/27/2023 Address:[address] [place] [address], [id number] Pcp:Marty Barrera MD Subjective: * Chief Complaints: [...] enies. C ardiovascular: Pacemaker d enies. 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 W PW d enies. C [...] core strength exercise. Marital status: . 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 * Medications: T aking Rituxan 100 MG/10ML [...] 08/27/2023 Generated for Yolie hi/Mehul on: 0 12/29/2024 08:59 AM EDT
--- OUTSIDE RECORDS SUMMARY | 2024-12-25 10:35 | XMS_ITS ---
Author Organization [facility] Address [address] [place] [address] Care Team Providers Care Environmental Lead Name Role Phone Michelle Harris M.D. Primary Care Provider Unavail asia Sterling Jr Tomas Unavailable Allergies Allergen (clinical drug ingredient) Drug/Non Drug Allergy documented on EMR Reaction Allergy Type Onset Date Status seasonal (uncoded) Unknown Allergy A ctive REASON FOR VISIT Patient presents today for a COLON SCREENING Medications Medication SIG (Take, Route, Frequency, Duration) Notes Start Date End Date Status Vitamin D 50 MCG (1999) 1 tablet Orally Once a day Active Rituxan 500 MG/50ML as directed Intravenous 2024 Active amLODIPine Besylate 10 MG 1 tablet Orall y Once a day for 30 day(s) 12/25/2024 Active Acthar 80 UNIT/ML 1 mL Injection for 3 0 day(s) 12/25/2024 Active Social History Tobacco Use: Social History Observation Description Date Details (start date - stop date) Current Smoker NA - NA Tobacco Control (Standard) Question Answer Notes Tobacco use: Current smoker AUDIT-C (Standard) Question Answer Notes Did you have a drink contain ing alcohol in the past year? Yes How often did you have a dri nk containing alcohol in the past year? 2 to 3 times a week (3 points) How many drinks did you have on a typical day when you were drinking in the past year? 1 or 2 drinks (0 point) How often did you have six o r more drinks on one occasion in the past year? Never (0 point) Points 3 Interpretation Positive Problems No Known Problems Vital Signs Temperature 98.5 degrees Fahrenheit 12/26/19 25 Blood pressure systolic 001 mm Hg 12/26/19 25 Blood pressure diastolic 01 mm Hg 025 Height 61.75 in 12/25/2024 Weight 117.4 lbs 12/25/2024 BMI 21.64 kg/m2 12/25/2024 Encounters Encounter Location Date Provider Diagnosis [facility] [address] [place] [address] 12/25/2024 Tomas Sterling Jr Encounter for screening for malignant neoplasm of colon Z12.11 Assessments Encounter Date Diagnosis (ICD Code) Assessment Notes Treatment Notes Treatment Clinical Notes Section Notes 12/25/2024 Encounter for screening for malignant neoplasm of colon (ICD-10 - Z12.11) We discussed colonoscopy today. We discussed risks and benefits of the procedure today. She understands these and agrees to proceed. This will be scheduled at her convenience. Plan Of Treatment Future Test Test Name Order Date COLONOSCOPY 12/25/2024 Next Appt Details Provider Name:Tomas lizama Jr, 02/13/2025 10:00:00 AM, [address] [place] [address] , [place], [place], [id number], Progress Notes * DANA JEISON ADOB: [birth year] (69 yo F)Acc No.[id number]:12/25/2024 Progress Notes Patient: JEISON CONTRERAS Provider: Harris Sterling MD :1955 A ge:69 Y S ex:Female Date:12/25/2024 Address:[address] [place], [place] [address] Pcp:Michelle Harris M.D. Subjective: * Chief Complaints: * 1 . Patient presents today for a COLON SCREENING. * HPI: N ew symptom(s): The patient is a pleasant 69-year-old woman seen today in consultation. She previously underwent screening colonoscopy in July 2008 with removal of a hyperplastic polyp. She has no complaints of rectal bleeding and no change in her bowel habits. * ROS: G eneral/Constitutional: Change in appetite d enies. F atigue d enies. ? E NT: Patient denies d ifficulty swallowing. R espiratory: Patient denies s hortness of breath. C ardiovascular: Patient denies c hest pain. G astrointestinal: Comments S [facility] for details. G enitourinary: Difficulty urinating d enies. I ncontinence d enies. M usculoskeletal: Patient denies m uscle aches. S kin: Patient denies p ruritis. N eurologic: Patient denies l ow back pain. P sychiatric: Patient denies m ental or physical abuse. * Medical History: H ypertension, Osteoporosis, Rheumatoid arthritis, Scleritis. * Surgical History: b reast biopsy 1998. * Family History: F ather: , diagnosed with Inflammatory bowel disease, Colon polyps, HTN (hypertension). M other: . No family history of liver cancer or colon cancer. * Social History: T obacco Use: T obacco Control (Standard) T obacco use: C urrent smoker. M iscellaneous: M arital status: . 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 D rug/Alcohol: A SHUKRI-C (Standard) D id you have a drink containing alcohol in the past year? Y es,?How often did you have a drink containing alcohol in the past year? 2 to 3 times a week (3 points), H ow many drinks did you have on a typical day when you were drinking in the past year??1 or 2 drinks (0 point), H ow often did you have six or more drinks on one occasion in the past year? N ever (0 point), P oints 3 , I nterpretation P ositive. * Medications: T aking Vitamin D 50 MCG (1999 [place]) Tablet 1 tablet Orally Once a day , Taking Rituxan 500 MG/50ML Solution as directed Intravenous , Taking amLODIPine Besylate 10 MG Tablet 1 tablet Orally Once a day , Taking Acthar 80 UNIT/ML Gel 1 mL Injection , Medication List reviewed and reconciled with the patient * Allergies: S easonal. Objective: * Vitals: W t:117.4lbs, Ht:61.75in, BMI: 21.64 Index, BP:001/01mm Hg, Temp:98.5, Ht-cm: 156.85, Wt-k.25. * Examination: G eneral Examination: GENERAL APPEARANCE: i n no acute distress. HEAD: n ormocephalic. EYES: s clera non-icteric. ORAL CAVITY: m ucosa moist. NECK/THYROID: n o lymphadenopathy. SKIN: a nicteric. HEART: S 1, S2 normal, no murmurs. LUNGS: c lear to auscultation bilaterally. CHEST: n ormal shape and expansion. ABDOMEN: s oft, nontender, nondistended, bowel sounds present, no organomegaly . EXTREMITIES: n o clubbing, cyanosis, or edema. PSYCH: c ognitive function intact. Assessment: * Assessment: 1. E ncounter for screening for malignant neoplasm of colon - Z12.11 (Primary) We discussed colonoscopy tod ay. We discussed risks and benefits of the procedure today. She understands these and agrees to proceed. This will be scheduled at her convenience. Plan: * Treatment: * Preventive Medicine: Counseling: S moking P atient counseled on the dangers of tobacco use and urged to quit. 0 12/25/2024, R elapse prevention: D iscussed the importance of a supportive environment and helped identify them.. Urinary Incontinence: U rinary Incontinence A ssessment: A bsent, P mitchel of care documented: N o, reason not specified. Screenings: F all Risk Screening F all Risk Assessment: N o falls in the past year, S creening: N o falls in the past year, A ssessment: N ot performed, no reason specified, P mitchel of Care: N ot documented, no reason specified. * * Sign off status: Completed true * Provider: Harris Sterling MD Date: 0 12/25/2024 Generated for Yolie hi/Temo/eTransmitting on: 0 12/29/2024 08:59 AM EDT History and Physical Notes * HPI (History of Present Illness) Category Sub-Category Detail Notes Category Not es New symptom(s) The patient i s a pleasant 69-year-old woman seen today in consultation. She previously underwent screening colonoscopy in July 2008 with removal of a hyperplastic polyp. She has no complaints of rectal bleeding and no change in her bowel habits. Examination Category Sub-Category Detail Notes Category Not es General Examination GENERAL APPEARANCE: in no acute di stress HEAD: normocephalic EYES: sclera non-icteric NECK/THYROID: no lymphadenopathy HEART: S1, S2 normal, no mu rmurs CHEST: normal shape and exp ansion LUNGS: clear to auscultatio n bilaterally ABDOMEN: soft, nontender, non distended, bowel sounds present, no organomegaly SKIN: anicteric EXTREMITIES: no clubbing, cyanosi s, or edema PSYCH: cognitive function i ntact ORAL CAVITY: mucosa moist
--- OUTSIDE RECORDS SUMMARY | 2024-12-29 09:00 | XMS_ITS | Patient Health Record ---
Author Organization [facility] Address [address] [place] [address] Care Team Providers Care Grain Ii Farmworker Name Role Phone Michelle Harris M.D. Primary Care Provider Unavail asia Sterling Jr Tomas Unavailable Allergies Allergen (clinical drug ingredient) Drug/Non Drug Allergy documented on EMR Reaction Allergy Type Onset Date Status seasonal (uncoded) Unknown Allergy A ctive Reason For Referral No [...] Injection for 3 0 day(s) 12/25/2024 Active Immunizations Vaccine Route Administration Date Status Comme nts Influenza Unknown 01/08/2024 Administered Social History Tobacco Use: Social History Observation [...] Problems Vital Signs Temperature 98.5 degrees Fahrenheit 12/25/2024 Blood pressure diastolic 01 mm Hg 12/25/2024 Height 61.75 in 12/25/2024 Blood pressure systolic 001 mm Hg 12/25/2024 Weight 117.4 lbs 12/25/2024 BMI 21.64 kg/m2 12/25/2024 Encounters Encounter Location Date Provider Diagnosis [facility] [address] [place] [address] 12/25/2024 Tomas Sterling Jr Encounter for screening [...] Provider Name:Tomas lizama Jr, 02/13/2025 10:00:00 AM, [address] [facility] , [place], [place], [id number], Insurance Providers Payer Name Payer Address Payer Phone Subscriber Number Group Number Insured Name Patient Relationship to Insured Coverage Start Date Coverage End Date MEDICARE OF [place] [address] [place] [address] [id number] [phone] [id number] JEISON CORTEZ Self - patient is the insured 0 [facility] [address] [place] [address] [id number] JEISON CORTEZ Self - patient is the insured 4 Medical (General) History Medical History History ICD Code Hypertension Osteoporosis Rheumatoid arthritis Scleritis Surgical History Surgery Date(Month/Year) breast biopsy 1998
--- OUTSIDE RECORDS SUMMARY | 2024-12-29 09:00 | XMS_ITS | Clinical Summary ---
Author Organization [facility] Address [address] [place] [address] Phone Care Team Providers Care Grain Commodity Manager Name Role Phone Marty Barrera MD [...] 2014 OSTEOPOROSIS SCREENING INITI AL (ONE-TIME) 2019 INFLUENZA VACCINE (#1) 2024 HEPATITIS A VACCINES Aged Out No long [...] this topic Medical Devices Implanted Type Area Environmental Programs Specialist Device Identifier Shelf Expiration Date Model / Serial / Lot Permanent Dental Bridge Valve Glaucoma [id number] Ahmed Flexible Plate Silicone Adult - [id number] Implanted:Qty: 1 on 06/16/2022 by Ayden Liu MD at [facility] Left: Eye [facility] 02/03/2024 7 / [id number] / [id number] Graft Allograft 9mm Tanzgraft Spilt Thickness [facility] - [id number] Implanted:Qty: 1 on 06/16/2022 by Ayden Liu MD at [facility] Left: Eye [employer] 01/10/2024 [id number] / [id number] / Insurance MEDICARE PART A & B MEDICARE SUPPLEMENT MEDICARE PART A & B MEDICARE SUPPLEMENT MEDICARE PART A & B MEDICARE SUPPLEMENT MEDICARE PART A & B MEDICARE SUPPLEMENT MEDICARE PART A & B MEDICARE SUPPLEMENT MEDICARE PART A & B MEDICARE SUPPLEMENT Advance Directives For more information, please contact: [phone] (9AM - 5PM [facility], Sunday-Sunday) Documents on File Type Date Recorded Patient Setter Induction Heating Equipment Expl anation Healthcare Proxy 06/23/2022 4:16 PM Care Teams Grain Commodity Manager Relationship Specialty Start Date End Date Marty Barrera MD [address] [place] [address] [place] [address] PCP - General Internal Medicine 05/15/22 Additional Source Comments The information contained in this document represents components of the legal health record. It is not the complete legal health record.[facility]
--- OUTSIDE RECORDS SUMMARY | 2024-12-29 09:00 | XMS_ITS | Patient Health Record ---
[facility] Address [address] [place] [address] Care Team Providers Care Chick Grader Name Role Phone Marty Barrera MD Primary Care Provider Bakari Gutierrez Unavailable [phone] Allergies Allergen (clinical drug ingredient) Drug/Non Drug [...] Ulcer of toe of right foot (disorder) (15451905213 203150) Skin ulcer of toe of right foot, limited to breakdown of skin (L97.511) Active confirmed Problem Ulcer of toe of left foot (disorder) (69386949513 085179) Skin ulcer of toe of left foot, limited to breakdown of skin (L97.521) Active confirmed Plan Of Treatment Pending Test Test Name Order Date [id number]-Rwhysbbo Plate 08/13/2023 31263- Debride <25 sq cm 08/30/2023 Insurance Providers Payer Name Payer Address Payer Phone Subscriber Number Group Number Insured Name Patient Relationship to Insured Coverage Start Date Coverage End Date Medicare National Govt Svcs Inc [address] [place] [address] [id number] Adriana Mullins Self - patient is the insured [facility] [address] [place] [address] [phone] [id number] Adriana Mullins Self - patient is [...]
--- OUTSIDE RECORDS SUMMARY | 2024-12-29 09:00 | XMS_ITS | Encounter Summary ---
Author Organization [facility] Address [address] [facility] [address] [place] [address] Phone Care Team Providers Care Extract Operator Name Role Phone Marty Barrera MD Primary Care Provider Encounter Details Date Type Department Care Team (Late st Contact Info) Description 06/16/2022 Procedure Pass COBY LW PERIOP DEPT [address] [place] [address] Social History Tobacco Use Types Packs/Day Years [...] on filedocumented in this encounter Care Teams Extract Operator Relationship Specialty Start Date End Date Marty Barrera MD [address] [place] [address] [place] [address] PCP - General Internal Medicine 1/23/23 documented as of this encounter Additional Source Comments The information contained in this document represents components of the legal health record. It is not the complete legal health record.[facility]
--- NOTE | 2025-03-24 13:29 | HO.ANESPROP2 ---
Documented by User: Anastasia Armstrong NP 03/24/25 13:30 HPI - Anesthesia Eval Consult details Narrative: 69yo F for Colonoscopy PMFSH Active Problems Active Problems: All Active Problems (Updated 02/10/25 @ 15:47 by SP Alcantara) Dyspnea (Acute) Productive cough (Acute) Right upper lobe pulmonary nodule (Acute) Hyperplastic colon polyp (Acute) Nicotine dependence, cigarettes, uncomplicated (Acute) Hyperlipidemia (Acute) Osteoporosis (Acute) Rheumatoid arthritis (Acute) HTN (hypertension) (Acute) Past Medical History Medical History Hyperplastic colon polyp Nicotine dependence, cigarettes, uncomplicated Hyperlipidemia Osteoporosis Scleritis Retinal detachment Rheumatoid arthritis HTN (hypertension) Surgical History Surgical History Hx of breast biopsy History of colonoscopy (~2008) Social History Social History Housing: House Are you a primary eye care professional to a significant other at home: No Do you presently have visiting nurse or other home services: No Patient Tobacco Use Status: Current everyday Tobacco user Tobacco use type: Cigarette Cigarette Packs Per Day: 0.5 Years Smoked: (onset 14yo, 1/2ppd x 55yrs, 25+pyh) Smoked in Last 30 Days: Yes e-Cigarette/Vaping Use: Never Used Patient Interested in Nicotine Replacement: No Have you been hit, kicked, punched, or otherwise hurt by someone within the past year? If so, by whom?: No Are you DNR?: No Advance Directives: No Advance Directives Information Provided: Yes service: No Current occupational status: employed Cognitive needs: No Hearing needs: No Vision needs: No Meds Allergies Allergy/AdvReac Type Severity Reaction Status Date / Time No Known Allergies Allergy Verified 03/27/25 07:18 Home Medications ?Medication ?Instructions ?Recorded ?Confirmed ?Last Taken ?Type corticotropin 40 unit/0.5 mL 40 unit subcut .2 times per week 09/09/24 03/27/25 Unknown History subcutaneous pen injector (Acthar Selfject) ketorolac 0.5 % eye drops 1 drp ophthalmic (eye) BID Left eye 09/09/24 03/27/25 Unknown History dorzolamide 22.3 mg-timolol 6.8 1 drp ophthalmic (eye) BID 12/17/24 03/27/25 Unknown History mg/mL eye drops fluticasone propionate 50 1 spray intranasal BID PRN 02/10/25 03/27/25 Unknown History mcg/actuation nasal Congestion spray,suspension rituximab 10 mg/mL 500 mg IV DIRECTED 02/10/25 03/27/25 Unknown History concentrate,intravenous (Rituxan) vitamins A,C,D-paqt-fnybnd 4,296 1 cap PO BID 02/10/25 03/27/25 Unknown History mcg-226 mg-90 mg capsule (PreserVision AREDS) amlodipine 2.5 mg tablet 10 mg PO DAILY 03/25/25 03/27/25 03/27/25 History Assessment and Plan Assessment Anesthesia Assessment: Chart Reviewed Documented by User: Deepthi Preston MD 03/27/25 07:38 [facility] Past Medical History Medical History Hyperplastic colon polyp Nicotine dependence, cigarettes, uncomplicated Hyperlipidemia Osteoporosis Scleritis Retinal detachment Rheumatoid arthritis HTN (hypertension) Surgical History Surgical History Hx of breast biopsy History of colonoscopy (~2008) History of Problems with Anesthesia: No Social History Social History Housing: House Are you a primary eye care professional to a significant other at home: No Do you presently have visiting nurse or other home services: No Patient Tobacco Use Status: Current everyday Tobacco user Tobacco use type: Cigarette Cigarette Packs Per Day: 0.5 Years Smoked: (onset 14yo, 1/2ppd x 55yrs, 25+pyh) Smoked in Last 30 Days: Yes e-Cigarette/Vaping Use: Never Used Patient Interested in Nicotine Replacement: No Have you been hit, kicked, punched, or otherwise hurt by someone within the past year? If so, by whom?: No Are you DNR?: No Advance Directives: No Advance Directives Information Provided: Yes service: No Current occupational status: employed Cognitive needs: No Hearing needs: No Vision needs: No Meds Allergies Allergy/AdvReac Type Severity Reaction Status Date / Time No Known Allergies Allergy Verified 03/27/25 07:18 Home Medications ?Medication ?Instructions ?Recorded ?Confirmed ?Last Taken ?Type corticotropin 40 unit/0.5 mL 40 unit subcut .2 times per week 09/09/24 03/27/25 Unknown History subcutaneous pen injector (Acthar Selfject) ketorolac 0.5 % eye drops 1 drp ophthalmic (eye) BID Left eye 09/09/24 03/27/25 Unknown History dorzolamide 22.3 mg-timolol 6.8 1 drp ophthalmic (eye) BID 12/17/24 03/27/25 Unknown History mg/mL eye drops fluticasone propionate 50 1 spray intranasal BID PRN 02/10/25 03/27/25 Unknown History mcg/actuation nasal Congestion spray,suspension rituximab 10 mg/mL 500 mg IV DIRECTED 02/10/25 03/27/25 Unknown History concentrate,intravenous (Rituxan) vitamins A,C,D-dfvn-hlztpc 4,296 1 cap PO BID 02/10/25 03/27/25 Unknown History mcg-226 mg-90 mg capsule (PreserVision AREDS) amlodipine 2.5 mg tablet 10 mg PO DAILY 03/25/25 03/27/25 03/27/25 History Exam Airway Mallampati Class: II TM Dist: >3cm Neck ROM: Limited Partial: Upper Loose/Missing/Broken Teeth: Yes and Upper Heart: RRR Lungs: diminished bilaterally, but no wheezing Assessment and Plan Assessment Anesthesia Assessment: Anesthesia Plan Discussed Final Anesthetic Review History of Problems with Anesthesia: No NPO: Yes ASA Class: III Final Preanesthetic Review: Meds/Allgs Chart Reviewed, Consent Obtained/Reviewed and Anes Risks/Benef Reviewed Patient Risk: Intermediate Procedure Risk: Low Anesthetic Plan Anesthetic Plan: MAC: Disposition: Standard PACU
[2025-03-25 10:03] VITALS: BMI 22.1
[2025-03-27 07:07] VITALS: BMI 21.9
[2025-03-27] MEDS: Lactated Ringers 1,000 ML 100 ML IVCONT (07:08)
[2025-03-27 07:29] VITALS: BP 159/72; PULSE 72; RESP 18; TEMP 36.7; O2SAT 99
--- NOTE | 2025-03-27 08:41 | MHC.SHP ---
Pre-Procedural Eval Section A - 24 Hr Update-Section A only Date of Service: 03/27/25 Section B - Complete if H&P > 30 days Chief Complaint: screening Details of Present Illness: see H&P no changes Relevant Family History (Specify if Yes): No Relevant Social History: None Present Medications: None Medical History: No relevant PMH History of Previous Operations: No relevant previous surgery Allergies: Allergies Allergy/AdvReac Type Severity Reaction Status Date / Time No Known Allergies Allergy Verified 03/27/25 07:18 Plan I have reviewed the history and physical and performed a pertinent physical examination on my patient. No changes have occurred unless specified. Time Spent With Patient Time: Total time managing care of this patient today ____ minutes.
[2025-03-27 09:27] VITALS: BP 102/47; PULSE 83; RESP 18; TEMP 36.4; O2SAT 99
[2025-03-27 09:42] VITALS: BP 114/82; PULSE 70; RESP 16; TEMP 37; O2SAT 99
--- NOTE | 2025-03-27 10:35 | OP_ITS ---
DATE OF SERVICE: 03/27/2025 SURGEON: Tomas Sterling MD INDICATIONS: Colon cancer screening. PREOPERATIVE DIAGNOSIS: POSTOPERATIVE DIAGNOSIS: PROCEDURE PERFORMED: Colonoscopy to the cecum with snare polypectomy. ESTIMATED BLOOD LOSS: COMPLICATIONS: ANESTHESIA: Monitored anesthesia care. ASSISTANTS: SPECIMENS: DESCRIPTION OF PROCEDURE: A history and physical was performed. The risks and benefits of the procedure were explained to the patient. Informed consent was obtained. The patient was placed in the left lateral decubitus position. A digital rectal exam was performed and was found to be normal. The Olympus pediatric video colonoscope was introduced into the rectum and advanced to the cecum. The cecum was identified by transillumination, palpation, and identification of the ileocecal valve. Examination was performed. The scope was removed. She tolerated the procedure well and was returned to the recovery area in stable condition. FINDINGS: There was a polyp in the cecum measuring approximately 6 x 8 mm. This was removed with a cold snare and recovered by suction. No other polyps were identified. The quality of the prep was good. Retroflexed examination was normal. IMPRESSION: Colon polyp. RECOMMENDATION: Follow up the biopsy results. MD MATT Chavira/ALLENL / [id number]
== END 2025-03-27 10:11 | disposition home or self-care (01) ==
PROVIDERS: PCP Physician Assistant; Visit Provider Internal Medicine Gastroenterology
PROC: 0DJD8ZZ Inspection of Lower Intestinal Tract, Via Natural or Artificial Opening Endoscopic (ICD-10-PCS; CPT 45378; principal; 2025-03-27 08:20)
DX: Z12.11 Encounter for screening for malignant neoplasm of colon (principal); D12.0 Benign neoplasm of cecum; I10 Essential (primary) hypertension; M81.0 Age-related osteoporosis without current pathological fracture; M06.9 Rheumatoid arthritis, unspecified; H15.009 Unspecified scleritis, unspecified eye; Z79.620 Long term (current) use of immunosuppressive biologic; F17.210 Nicotine dependence, cigarettes, uncomplicated; Z79.899 Other long term (current) drug therapy
CPT/HCPCS: 45385; 88305; J2003; J2704